=== PATIENT | female | born 1955 | race African-American/Black ===

== ENCOUNTER → 2019-09-24 | Outpatient (CLI) | payer MEDICARE ==
--- NOTE | 2019-09-24 16:35 | CONS ---
CONSULTATION DATE OF SERVICE: 09/24/2019 This patient is a 63-year-old lady who has been re-evaluated in [facility] for obstructive sleep apnea-hypopnea syndrome. HISTORY OF PRESENT ILLNESS/SLEEP-WAKE EVALUATION: Patient was diagnosed with obstructive sleep apnea more than 8 years ago, was on treatment with CPAP. More than one year ago she stopped using her CPAP equipment. She also has had significant changes in her weight since her previous evaluation; she lost more than 70 pounds after bariatric surgery. Her sleep schedule is different. She is retired and does not keep a regular sleep schedule. Sometimes she has problems with falling asleep. She usually sleeps on the side position by herself. She may wake up from sleep with nocturia. During the day, sometimes she feels sleepiness, especially while watching TV or lying down in the afternoon. [place] Sleepiness Scale is 6. She takes one caffeinated beverage during the day. No history of hypnagogic hallucinations, sleep paralysis or cataplexy. PAST MEDICAL HISTORY: Positive for hypertension, hyperlipidemia, diabetes mellitus, gout. PAST SURGICAL HISTORY: Bariatric surgery in 2017. After surgery the patient lost about 70 pounds. MEDICATIONS: Metoprolol, metformin, allopurinol, gabapentin, atorvastatin, lansoprazole, lisinopril, Victoza, B12 tablets, calcium supplement. SOCIAL HISTORY: Negative for smoking or using alcohol. FAMILY HISTORY: Heart problems. REVIEW OF SYSTEMS: Some awakenings from sleep, episodes of sleepiness during the day. PHYSICAL EXAMINATION: GENERAL: A pleasant -Tajik lady without distress. VITAL SIGNS: BP 106/68, HR 88, RR 16, height 5 feet 2 inches, weight 234, BMI 42.7, temperature 98.8, oxygen saturation at room air 98%. HEENT: PERRLA, EOMI. Evaluation of oropharynx showed tongue protrudes midline. Low position of soft palate. NECK: Supple. No JVD. Thyroid is not palpable. Neck measures 16 inches in circumference. LUNGS: Clear to percussion and to auscultation. Good air exchange. No wheezing or rhonchi. HEART: S1, S2 regular. No murmurs, gallops or rubs. ABDOMEN: Obese. EXTREMITIES: No clubbing or cyanosis. BPM DEVELOPER: Awake, alert, and oriented X3. Cranial nerves 2 to 7 intact. There is no fasciculation or atrophy. noted. No focal deficits observed. IMPRESSION: 1. History of obstructive sleep apnea documented by polysomnography around 2011. The patient was on treatment with CPAP. She stopped treatment more than one year ago. The patient lost a significantly amount of weight after bariatric surgery; down about 70 pounds. Obstructive sleep apnea-hypopnea syndrome. 2. Obesity; body mass index 42.7. 3. Hypertension. 4. Diabetes mellitus. 5. History of gout. 6. Hyperlipidemia. 7. Status post bariatric surgery in 2017. PLAN: 1. Polysomnography for evaluation of patient's breathing during sleep. 2. CPAP/BiPAP titration if sleep study confirms obstructive sleep apnea-hypopnea syndrome. 3. Preferable position during sleep on the side. 4. No driving if patient feels any sleepiness. 5. I will see patient for follow up visit to explain results of testing and following plan. Thank you very much for allowing me to participate in the management of your patient. Sincerely, Niranjan Denise MD, PhD, FAASM Diplomat of [place] [employer] [place] [employer] Director [facility] [place] MMODL / ANGN: [id number] /
== END | disposition home or self-care (01) ==
LOC: SLEEP 11:44
PROVIDERS: ATTEND Internal Medicine
DX: G47.33 Obstructive sleep apnea (adult) (pediatric) (principal); Z99.89 Dependence on other enabling machines and devices; E66.9 Obesity, unspecified; I10 Essential (primary) hypertension; E11.9 Type 2 diabetes mellitus without complications; E78.5 Hyperlipidemia, unspecified; Z98.84 Bariatric surgery status; Z68.41 Body mass index [BMI] 40.0-44.9, adult; Z87.39 Personal history of other diseases of the musculoskeletal system and connective tissue
CPT/HCPCS: 99211

== ENCOUNTER → 2019-10-01 | Outpatient (CLI) | payer MEDICARE ==
[2019-10-01 15:30] LABS: Potassium 5.6 mmol/L (3.5-5.1)
[2019-10-01 15:41] LABS: HCT 34.8 % (34.0-46.0); HGB 11.2 gm/dL (11.4-16.0); Hypochromasia Slight; MCH 31.8 pg (25.0-35.0); MCHC 32.1 g/dL (31.0-37.0); MCV 99.1 fL (80.0-100.0); Mean Platelet Volume 7.9; Platelet Count 244 k/uL (150-450); RBC 3.51 m/uL (3.80-5.40); WBC 6.4 k/uL (3.8-10.6)
== END | disposition home or self-care (01) ==
LOC: LABWHC1 14:49
PROVIDERS: ATTEND Internal Medicine Interventional Cardiology
DX: Z01.818 Encounter for other preprocedural examination (principal); R94.39 Abnormal result of other cardiovascular function study
CPT/HCPCS: 36415; 80051; 82565; 84520; 85027

== ENCOUNTER 2019-10-08 06:23 | Day surgery (SDC) | payer MEDICARE ==
[2019-10-06 10:47] VITALS: BMI 42.7
[~2019-10-08 06:23] MED LIST: ALPRAZolam 0.25 MG TAB PO PRN; ALPRAZolam 0.5 MG TAB PO PRN; ASPIRIN 325 MG TAB PO STA; ATORVASTATIN 80 MG TAB PO STA; NITROGLYCERIN SL TABS 0.4 MG TAB SUBLINGUAL PRN; SODIUM CHLORIDE 0.9% 1,000 ML in EMPTY BAG 1 BAG IV ONE
[2019-10-08 07:09] LABS: Glucose,Whole Blood 139 mg/dL (75-99)
[2019-10-08] MEDS ORDERED: fentaNYL (PF) 50 MCG/ML 2 ML AMP ONE (07:37)
[2019-10-08] MEDS ORDERED: MIDAZOLAM 2 MG/2 ML VIAL IV ONE (07:37)
[2019-10-08] MEDS ORDERED: LIDOCAINE 1% INJ 10MG/ML (20 ML MDV) SQ ONE ×2 (07:37→08:05)
[2019-10-08] MEDS ORDERED: fentaNYL (PF) 50 MCG/ML 2 ML AMP IV ONE (07:37)
[2019-10-08] MEDS ORDERED: BIVALIRUDIN 250 MG in SODIUM CHLORIDE 0.9% 34 ML IV ONE (08:10)
[2019-10-08] MEDS ORDERED: BIVALIRUDIN BOLUS 250 MG/50 ML IV ONE (08:10)
[2019-10-08] MEDS ORDERED: CLOPIDOGREL 75 MG TAB ONE (08:16)
[2019-10-08] MEDS ORDERED: IOPAMIDOL-370 100ML BTL INJ ONE ×2 (08:20→08:33)
[2019-10-08] MEDS ORDERED: CLOPIDOGREL 75 MG TAB PO ONE (08:21)
[2019-10-08] MEDS ORDERED: RX INFO: IV CONTRAST WAS GIVEN 1 EACH MISC MISCELLANE PRN (08:42)
[2019-10-08] MEDS ORDERED: NITROGLYCERIN SL TABS 0.4 MG TAB SUBLINGUAL PRN (08:42)
[2019-10-08] MEDS ORDERED: ATROPINE SULFATE 0.1 MG/ML 10ML SYRINGE IV PRN (08:42)
[2019-10-08] MEDS ORDERED: ZOLPIDEM 5 MG TAB PO PRN (08:42)
[2019-10-08] MEDS ORDERED: MAG HYDROX/AL HYDROX/SIMETH 30 ML CUP PO PRN (08:42)
[2019-10-08] MEDS ORDERED: SODIUM CHLORIDE 0.9% 1,000 ML IV SCH (08:45)
--- NOTE | 2019-10-08 09:17 | PTCA ---
PERCUTANEOUSTRANS CORORONARY ANGIOGRAPHY Mrs Ferreira is a 63-year-old female with history of hypertension, hyperlipidemia, diabetes mellitus, who had been complaining of chest discomfort and abnormal myocardial perfusion imaging, underwent cardiac catheterization, was found to have critical stenosis involving the proximal LAD. In view of that, recommendation regarding angioplasty and stenting, the procedures, risks, and complication were discussed with the patient who is in full understanding and agreement. PROCEDURE: Using a 6-Malagasy FR4 guiding catheter and after cannulating the left main, a 0.014 balanced medium weight J-wire was advanced across the lesion, positioned distally, then a 2.5 x 12 mm Trek balloon was advanced and one inflation at 8 atmospheres was done. Following that, the balloon was removed and a 2.5 x 15 mm Xience Maryana stent was deployed, post-dilated at 16 atmospheres. After the last inflation, after appropriate wait, the balloon and the guidewire were withdrawn back in the guiding catheter. Images were obtained and repeated. Those images reveal stable successful stenting. At that point, the guiding catheter, the balloon and the guidewire were removed. The sheath was removed, hemostasis was obtained with deployment of an Angio-Seal. There was no immediate complication. Patient was returned to her room in stable condition. Of note, the patient received oral loading dose of clopidogrel as well as Angiomax per protocol. She had no significant chest pain or EKG changes with the inflation. RESULTS: Successful stenting of the proximal LAD with reduction of stenosis from 95% to 0%. RECOMMENDATION: Patient will be continued on aspirin, Plavix, statin and an CHRISTIAN inhibitor. The importance of dual antiplatelet treatment was discussed with the patient and her family and they are in full understanding and agreement. Duration of sedation is 57 minutes. MMODL / IJN: [id number] /
--- NOTE | 2019-10-08 09:17 | CC ---
CARDIAC CATHETERIZATION REPORT Mrs Ferreira is a 63-year-old female with known history of hypertension, hyperlipidemia, diabetes mellitus, who has been complaining of episode of chest discomfort, underwent a myocardial perfusion imaging that revealed an anteroseptal reversible defect. In view of that, recommendation made regarding cardiac catheterization. The procedures, risks, and complication were discussed with the patient who is in full understanding and agreement. PROCEDURE: Patient was brought to lab tech in a fasting semi-sedated state after receiving fentanyl and Benadryl and achieving moderate conscious sedated state. Attempts to cannulate the right coronary artery were unsuccessful because of severe spasm and inability to advance the wire. At that time, the a TR band was placed on the right radial artery. Using Xylocaine anesthesia and Seldinger technique, a 6-Georgian sheath was introduced in the right femoral artery. Selective right and left coronary angiography performed using 5-Georgian 3.5 bend right and left Yuli catheter, multiple views of the coronary artery including hemiaxial views were obtained. Following that, the right Yuli catheter was used to cross the aortic valve and pressures were calculated. Following that, catheter and sheath were removed, images were reviewed. FINDINGS: FLUOROSCOPY: There was mild calcification involving the LAD. LEFT MAIN: This is a large-sized vessel, bifurcating into left circumflex, left anterior descending artery. Left main coronary artery has a 10% to 20% plaque distally. LEFT ANTERIOR DESCENDING ARTERY: This is a large-sized vessel, reaching toward the apex with a wraparound apex segment. The left anterior descending artery proximally has a 95% stenosis, the rest of the vessel has no high-grade stenosis. LEFT CIRCUMFLEX: This is a codominant vessel, large in caliber, giving rise to a large proximal obtuse marginal branch, and the mid segment was smaller obtuse marginal branch and distally to a left PDA. The left circumflex has mild intimal disease of 20% without any evidence of high-grade stenosis. RIGHT CORONARY ARTERY: This is a codominant vessel, moderate in caliber, bifurcating distally into PDA and posterolateral segment and branches. The right coronary artery in mid segment has diffuse intimal disease of 20%. The rest of the vessel has no high- grade stenosis. LEFT VENTRICULOGRAM: Left ventriculogram not performed. HEMODYNAMICS: There was no gradient across the aortic valve. The ventricular end- diastolic pressure was 14-16 mmHg. CONCLUSION: 1. Critical stenosis involving the proximal LAD. 2. Mild disease in the left circumflex and the right coronary artery. RECOMMENDATION: In view of finding anatomy, I recommend proceeding with angioplasty and stenting of the left anterior descending artery. The procedures, risks, and complication were discussed with the patient who is in full understanding and agreement. MMMELISSA / ALEXANDRA: [id number] /
--- NOTE | 2019-10-08 09:23 | LTR ---
DATE OF SERVICE: 10/08/2019 RE: Lorin Ferreira Dear Dr. Pate; I had the pleasure to perform cardiac catheterization, coronary angioplasty and stenting on Mrs. Ferreira at [facility] on October 08, 2019 and a full copy of the procedure note will be forwarded to you. In brief, she was found to have critical stenosis involving the proximal LAD, underwent successful stenting of that vessel. I am hopeful that this procedure was stabilize her status and thank you again for allowing me to participate in this patient's personal care. Please feel free to call for any questions. Sincerely yours, MD EMILY Ventura / ANGN: [id number] /
[2019-10-08] MEDS: ASPIRIN 81 MG PO SCH (10:33)
[2019-10-08] MEDS: GABAPENTIN 400 MG CAP PO SCH ×3 (10:33→21:33)
[2019-10-08] MEDS: METOPROLOL TARTRATE 25 MG TAB PO SCH ×2 (10:33→21:33)
[2019-10-08] MEDS: lisinopriL 10 MG TAB PO SCH (10:33)
[2019-10-08] MEDS: CYANOCOBALAMIN 500 MCG TAB PO SCH (10:33)
[2019-10-08] MEDS: allopurinoL 300 MG TAB PO SCH (10:33)
[2019-10-08] MEDS: MULTIVITAMINS, THERA 1 EACH TAB PO SCH (10:34)
[2019-10-08] MEDS ORDERED: ATORVASTATIN 80 MG TAB PO SCH (21:00)
[2019-10-09] MEDS ORDERED: ACETAMINOPHEN TAB 325 MG TAB PO STA (02:57)
[2019-10-09 06:08] LABS: Potassium 5.6 mmol/L (3.5-5.1)
[2019-10-09 06:09] LABS: Calcium 9.1 mg/dL (8.4-10.2)
[2019-10-09] MEDS ORDERED: PANTOPRAZOLE 40 MG TABLET PO SCH (07:30)
--- NOTE | 2019-10-09 07:30 | PN ---
PROGRESS NOTE Mrs. Ferreira is a 63-year-old female with known history of hypertension, hyperlipidemia, and diabetes mellitus, who had episode of chest discomfort and abnormal myocardial perfusion imaging, underwent cardiac catheterization, was found to have critical stenosis involving the proximal LAD, underwent stenting of that vessel. She is doing well this morning. Her breathing is stable. She denies any chest pain. No dizziness. No palpitation. She is ambulating without difficulty. She continues to be in sinus mechanism. She continues to be on aspirin once a day, Plavix 75 mg daily, Lipitor 80 mg daily, gabapentin, Victoza, lisinopril 10 mg daily, metoprolol tartrate 25 mg twice a day. PHYSICAL EXAMINATION: Blood pressure 114/60 with the heart rate in the 60s. LUNGS: Clear. HEART: Regular rate and rhythm. S1, S2. No S3 with systolic ejection murmur heard at the base. No diastolic murmur. No rub. ABDOMEN: Soft, nontender, obese. EXTREMITIES: No edema. Right groin, no hematoma. Right radial pulse intact. EKG revealed no acute changes. LAB DATA: Lab data revealed BUN and creatinine 28 and 0.86, potassium 5.6. IMPRESSION: 1. Status post stenting of the proximal left anterior descending artery. 2. Hypertension. 3. Hyperlipidemia. 4. Diabetes mellitus. RECOMMENDATION: Patient will be discharged home today and followed as an outpatient. MMODL / IJN: [id number] /
[2019-10-09 08:10] VITALS: BP 128/72; PULSE 87; RESP 16; TEMP 97.9
[2019-10-09] MEDS: GABAPENTIN 400 MG CAP PO SCH (08:12)
[2019-10-09] MEDS: ASPIRIN 81 MG PO SCH (08:12)
[2019-10-09] MEDS: METOPROLOL TARTRATE 25 MG TAB PO SCH (08:12)
[2019-10-09] MEDS: allopurinoL 300 MG TAB PO SCH (08:12)
[2019-10-09] MEDS: MULTIVITAMINS, THERA 1 EACH TAB PO SCH (08:12)
[2019-10-09] MEDS: CYANOCOBALAMIN 500 MCG TAB PO SCH (08:13)
[2019-10-09] MEDS: lisinopriL 10 MG TAB PO SCH (08:13)
[2019-10-09] MEDS ORDERED: CLOPIDOGREL 75 MG TAB PO SCH (08:43)
[2019-10-10] MEDS ORDERED: ERGOCALCIFEROL 50,000 UNIT CAP PO SCH (09:00)
== END 2019-10-09 09:55 | disposition home or self-care (01) ==
LOC: CATHCVL 06:23 → 3NCARDOBS 09:00 → CATHCVL 10-09 09:55
PROVIDERS: ATTEND Internal Medicine Interventional Cardiology
DX: I25.10 Atherosclerotic heart disease of native coronary artery without angina pectoris (principal); I10 Essential (primary) hypertension; E11.9 Type 2 diabetes mellitus without complications; E78.2 Mixed hyperlipidemia; E66.9 Obesity, unspecified; Z79.84 Long term (current) use of oral hypoglycemic drugs; Z79.899 Other long term (current) drug therapy; Z90.710 Acquired absence of both cervix and uterus; Z98.84 Bariatric surgery status; Z90.49 Acquired absence of other specified parts of digestive tract; Z90.89 Acquired absence of other organs; Z68.41 Body mass index [BMI] 40.0-44.9, adult; Z82.3 Family history of stroke; Z82.49 Family history of ischemic heart disease and other diseases of the circulatory system
CPT/HCPCS: 93458; 85347; 80048; 84132; C9600; C1769 ×4; C1760; C1887; C1725; C1894 ×2; C1874; J2250; J2001; J3010; J0583; Q9967

== ENCOUNTER → 2019-11-06 | Outpatient (CLI) | payer MEDICARE ==
[2019-11-07 09:39] LABS: Angiotensin-1 Converting Enz. 5 U/L (8-52)
[2019-11-07 11:05] LABS: ANA Pattern Homogeneous
== END | disposition home or self-care (01) ==
LOC: LABWHC1 09:17
PROVIDERS: ATTEND Ophthalmology
DX: H20.9 Unspecified iridocyclitis (principal)
CPT/HCPCS: 36415; 82164; 85549; 86038; 86039; 86140

== ENCOUNTER → 2019-11-20 | Outpatient (CLI) | payer MEDICARE ==
[2019-11-20 23:32] LABS: Hepatitis A Antibody IgM Non-Reactive (Non-Reactive); Hepatitis B Core IgM Non-Reactive (Non-Reactive); Hepatitis B Surface Antigen Non-Reactive (Non-Reactive); Hepatitis C IgG Antibody Non-Reactive (Non-Reactive)
[2019-11-21 01:24] LABS: Rheumatoid Factor, Qnt 8 IU/mL (0-15)
[2019-11-22 16:13] LABS: HLA B27 NEGATIVE
== END | disposition home or self-care (01) ==
LOC: LABWHC1 15:59
PROVIDERS: ATTEND Ophthalmology
DX: H20.9 Unspecified iridocyclitis (principal)
CPT/HCPCS: 36415; 80074; 85652; 86431; 86618; 86780; 86812

== ENCOUNTER → 2020-03-10 | Outpatient (CLI) | payer MEDICARE ==
--- NOTE | 2020-03-15 11:48 | MM ---
Reason for exam: screening (asymptomatic). Last mammogram was performed 12 years and 7 months ago. History: Patient is postmenopausal. Family history of breast cancer in aunt. Benign ultrasound-guided core biopsy of the right breast, May 11, 2004. Benign ultrasound-guided core biopsy of the right breast, May 11, 2004. Benign excisional biopsy of the right breast, May 04, 1997. Cyst aspiration of the left breast. Cyst aspiration of the right breast. 2 core biopsies of the right breast. Excisional biopsy of the left breast. Excisional biopsy of the right breast. Took hormonal contraceptives for 5 years. Physical Findings: A clinical breast exam by your physician is recommended on an annual basis and results should be correlated with mammographic findings. MG Screening Mammo w CAD Bilateral CC and MLO view(s) were taken. No prior studies available for comparison. The breast tissue is heterogeneously dense. This may lower the sensitivity of mammography. Finding: There are dystrophic, diffuse/scattered calcifications in both breasts. Previous mammotome biopsy in the right breast. There are grouped calcifications left lower inner quadrant middle position. ASSESSMENT: Incomplete: need additional imaging evaluation, BI-RAD 0 RECOMMENDATION: Special view mammogram of the left breast. [facility] will attempt to contact patient to return for supplemental views.
== END | disposition home or self-care (01) ==
LOC: RADMAMWWP 13:42
PROVIDERS: ATTEND Internal Medicine
DX: Z12.31 Encounter for screening mammogram for malignant neoplasm of breast (principal)
CPT/HCPCS: 77067

== ENCOUNTER → 2020-03-18 | Outpatient (CLI) | payer MEDICARE ==
--- NOTE | 2020-03-18 11:53 | MM ---
Reason for exam: additional evaluation requested from abnormal screening. Last mammogram was performed less than 1 month ago. History: Patient is postmenopausal. Family history of breast cancer in aunt. Benign ultrasound-guided core biopsy of the right breast, May 11, 2004. Benign ultrasound-guided core biopsy of the right breast, May 11, 2004. Benign excisional biopsy of the right breast, May 04, 1997. Cyst aspiration of the left breast. Cyst aspiration of the right breast. 2 core biopsies of the right breast. Excisional biopsy of the left breast. Excisional biopsy of the right breast. Took hormonal contraceptives for 5 years. Physical Findings: Nurse did not find any significant physical abnormalities on exam. MG Work Up Mamm w CAD LT Spot compression CC, spot compression LM, and LM view(s) were taken of the left breast. Prior study comparison: March 10, 2020, bilateral MG screening mammo w CAD. The breast tissue is heterogeneously dense. This may lower the sensitivity of mammography. Finding: There are intermediate concern, suspicious coarse heterogeneous calcifications in the upper inner quadrant, posterior position of the left breast 12cm from the nipple. These results were verbally communicated with the patient and result sheet given to the patient on 03/18/20. ASSESSMENT: Suspicious, BI-RAD 4 RECOMMENDATION: Stereotactic core biopsy of the left breast. (left breast calcification) Called Dr. Pate's office with mammographic findings and has scheduled an appointment for the patient for 04/22/20 at 9:[address] Woody. Biopsy scheduled for 04/29/20 at 8:00. PRELIMINARY REPORT CALLED AND FAXED TO DR. WOODY ON 03/18/20.
== END | disposition home or self-care (01) ==
LOC: RADMAMWWP 09:03
PROVIDERS: ATTEND Internal Medicine
DX: R92.8 Other abnormal and inconclusive findings on diagnostic imaging of breast (principal)
CPT/HCPCS: 77065

== ENCOUNTER → 2020-04-12 | Outpatient (CLI) | payer MEDICARE ==
--- NOTE | 2020-04-12 09:43 | P.GSHP ---
History of Present Illness H&P Date: 04/12/20 Chief Complaint: abnormal left breast mammogram This is 64-year-old -Martiniquais female seen in consultation for Dr. Pate regarding a mammographic abnormality in the left breast. A routine mammogram was performed on 03-10-20, and Additional views of the left breast was recommended for calcifications, these were performed on 172. Calcifications which were indeterminate were seen in the left breast in the upper inner quadrant area. It was recommended she have a stereotactic core biopsy performed.The patient has not felt any lumps masses or nodules of concern. She does not have any nipple discharge of concern. She's has no skin changes of concern. She is not complaining of any pain in the breast. She has had bilateral breast biopsies in the remote past for fibrocystic breast disease. She has also had a cyst aspirated in both breasts in the past.The patient does not relate any history of recent trauma or infection in the breast. Caffeine: Seldom Nicotine: Negative GI bloating: Negative Family history: Maternal aunt: Cervical cancer Maternal aunt: Breast cancer Hormonal history: Menarche: 12 , breast-fed no, age of first. 16 Menopause: Hysterectomy a 51 ovary removed and for fibroid tumors control pills: 5 years Hormones: Negative Past surgical history: Hysterectomy Bilateral breast biopsies Cholecystectomy Tommy-en-Y, has lost 70 pounds to 2 years ago Appendectomy cardiac stint 10-08-19 Medical history: Hypertension Diabetes patient on aspirin and plavic after a cardiac stint Social History: smoke: none alcohol: noen drugs: none - Constitutional Constitutional: Denies chills, Denies fever - EENT Eyes: denies blurred vision, denies pain Ears: deny: decreased hearing, tinnitus Ears, nose, mouth and throat: Denies headache, Denies sore throat - Breasts Breasts: bilateral: as per HPI - Cardiovascular Comment: cardiac stint - Respiratory Comment: sleep apnea Respiratory: Denies cough, Denies 7 - Gastrointestinal Gastrointestinal: Denies abdominal pain, Denies diarrhea, Denies nausea, Denies vomiting - Genitourinary (Female) Genitourinary: Denies dysuria, Denies hematuria - Menstruation Menstruation: Reports post hysterectomy - Musculoskeletal Comment: arthritis Musculoskeletal: Denies myalgias - Integumentary Integumentary: Denies pruritus, Denies rash - Neurological Neurological: Denies numbness, Denies weakness - Psychiatric Psychiatric: Denies anxiety, Denies depression - Endocrine Endocrine: Denies fatigue, Denies weight change - Hematologic/Lymphatic Comment: aspirin and plavic Hematologic/Lymphatic: Reports as per HPI - Allergic/Immunologic Allergic/Immunologic: Reports as per HPI Past Medical History Past Medical History: Diabetes Mellitus, Hyperlipidemia, Hypertension, Sleep Apnea/CPAP/BIPAP Additional Past Medical History / Comment(s): heart murmur History of Any Multi-Drug Resistant Organisms: None Reported Past Surgical History: Appendectomy, Bariatric Surgery, Cholecystectomy, Hysterectomy Additional Past Surgical History / Comment(s): tommy-en-y bariatric surgery Past Anesthesia/Blood Transfusion Reactions: No Reported Reaction Past Psychological History: No Psychological Hx Reported Smoking Status: Never smoker Past Alcohol Use History: None Reported Past Drug Use History: None Reported - Past Family History Mother Family Medical History: No Reported History Medications and Allergies Home Medications Medication Instructions Recorded Confirmed Type Allopurinol [Zyloprim] 300 mg PO DAILY 10/06/19 04/12/20 History Aspirin [Adult Low Dose Aspirin EC] 81 mg PO DAILY 10/06/19 04/12/20 History Calcium Citrate 2,000 mg PO DAILY 10/06/19 04/12/20 History Cyanocobalamin [Vitamin B-12] 500 mcg PO DAILY 10/06/19 04/12/20 History Ergocalciferol [Vitamin D2 50,000 unit PO FR 10/06/19 04/12/20 History (DRISDOL)] Gabapentin [Neurontin] 400 mg PO TID 10/06/19 04/12/20 History Lansoprazole [Prevacid] 30 mg PO DAILY 10/06/19 04/12/20 History Liraglutide [Victoza 2-Josh] 0.6 mg SQ DAILY 10/06/19 04/12/20 History Lisinopril [Prinivil] 10 mg PO DAILY 10/06/19 04/12/20 History Metoprolol Tartrate [Lopressor] 25 mg PO BID 10/06/19 04/12/20 History Multivitamins, Thera [Multivitamin 1 tab PO BID 10/06/19 04/12/20 History (formulary)] metFORMIN HCL [Glucophage] 500 mg PO BID 10/06/19 04/12/20 History Atorvastatin [Lipitor] 80 mg PO HS #90 tab 10/09/19 04/12/20 Rx Clopidogrel [Plavix] 75 mg PO DAILY #90 tab 10/09/19 04/12/20 Rx Nitroglycerin Sl Tabs [Nitrostat] 0.4 mg SUBLINGUAL Q5M PRN #25 tab 10/09/19 04/12/20 Rx Ezetimibe [Zetia] 10 mg PO DAILY 04/12/20 04/12/20 History Allergies Allergy/AdvReac Type Severity Reaction Status Date / Time No Known Allergies Allergy Verified 04/12/20 09:06 Surgical - Exam BMI 42.1 - General obese - Eyes normal ocular movement - ENT normal pinna, normal mucosa - Neck no masses, trachea midline - Respiratory normal expansion, normal respiratory effort, clear to auscultation - Cardiovascular Rhythm: regular Heart Sounds: normal: S1, S2 - Abdomen Abdomen: soft, non tender, no guarding, no rigid, no rebound - Integumentary normal turgor - Neurologic no disoriented, no combative - Musculoskeletal normal gait - Psychiatric oriented to time, oriented to person, oriented to place, speech is normal, memory intact breast exam: BRA 44DD inspection: Bilateral grade 3 ptosis Palpation: Right breast: Well-healed scar from prior biopsy, no dominant masses or nodules of concern on multi-positional exam Right axilla: No adenopathy of concern Left breast: Multi-positional exam fibrocystic changes no dominant masses or nodules of concern, well-healed scar from prior open biopsy Left axilla: No adenopathy of concern Results Mammogram results reviewed Assessment and Plan Assessment: Impression: Hypertension Diabetes patient on aspirin and plavic after a cardiac stint Abnormal left breast mammogram Family history of cancer Plan: 1. Stereotactic core biopsy left breast/patient will stop Plavix as per cardiology maintain on low-dose aspirin 2. Medical management of medical conditions Cc: Dr. Pate Risks and benefits of the procedure discussed with the patient. Risks include but are not limited to bleeding, infection, reaction to the anesthetic. Additionally the patient understands that because she was still be on aspirin she has increased risk of the hematoma. She understands and wishes to proceed. Alternatives such as watchful waiting or resection in the operating room I discussed but not recommended. Encounter: time 45 minutes, time spent in reviewing medical records, physical examination, and counseling.
[2020-04-12 10:30] VITALS: BP 135/86; PULSE 68; RESP 18; TEMP 97.6
== END | disposition home or self-care (01) ==
LOC: WWCWWP 08:57
PROVIDERS: ATTEND Surgery
DX: Z53.9 Procedure and treatment not carried out, unspecified reason (principal)

== ENCOUNTER → 2020-04-14 | Outpatient (CLI) | payer MEDICARE ==
--- NOTE | 2020-04-14 23:33 | SFUN ---
SLEEP CENTER FOLLOW UP NOTE DATE OF SERVICE: 04/14/2020 This 64-year-old lady has been followed in Sleep Center for treatment of obstructive sleep apnea-hypopnea syndrome. Recently the patient had a diagnostic polysomnogram which showed that she has obstructive sleep apnea-hypopnea syndrome. Then she had CPAP titration and she was started subsequently on treatment with CPAP. Today is her first visit after she started to use CPAP equipment. The patient feels better with the CPAP. She feels better during the day and she feels more refreshed in the morning after she wakes up. [place] Sleepiness Scale today is 4, which is normal. I checked her CPAP unit. CPAP pressure is 10 cm of water, usage 29/30 nights for more than 4 hours with average usage 6.4 hours per night. Leak is 17 L/minute. Apnea- hypopnea index 1.2. MEDICATIONS: Metoprolol, metformin, allopurinol, gabapentin, atorvastatin, lisinopril, Victoza. PHYSICAL EXAMINATION: GENERAL: A pleasant patient in no distress. VITAL SIGNS: BP 116/62, HR 82, RR 15, weight 235, temperature 97.2, oxygen saturation at room air 95%. HEENT: PERRLA, EOMI. Evaluation of oropharynx showed tongue protrudes midline. Low position of soft palate. NECK: Supple. No JVD. Thyroid is not palpable. LUNGS: Clear to percussion and to auscultation. Good air exchange. No wheezing or rhonchi. HEART: S1, S2 regular. No murmurs, gallops or rubs. ABDOMEN: Obese. EXTREMITIES: No clubbing or cyanosis. CHAIN TESTING MACHINE OPERATOR: Awake, alert, and oriented X3. Cranial nerves 2 to 7 intact. There is no fasciculation or atrophy. noted. No focal deficits observed. IMPRESSION: 1. Obstructive sleep apnea-hypopnea syndrome. Patient demonstrated practically 100% compliance with treatment, benefitting from treatment. 2. Obesity. 3. Hypertension. 4. Diabetes mellitus. 5. History of gout. 6. Hyperlipidemia. 7. Status post bariatric surgery. PLAN: 1. Patient will continue to use PAP equipment every night for the whole night. 2. Sleep hygiene with regular time in bed for at least 7-1/2 to 8 hours. 3. Precautions related to driving. No driving if feeling sleepiness. 4. I will maintain all necessary prescription for PAP supplies including mask, tube, filters. 5. Watching weight. 6. No driving if feeling sleepiness. 7. Follow-up visit in 6 months or earlier if patient has any problems. Thank you very much for allowing me to participate in the management of your patient. Sincerely, Nrianjan Denise MD, PhD, FAASM Diplomat of [place] [employer] [place] [employer] [facility] [place] MMODL / ANGN: [id number] /
== END | disposition home or self-care (01) ==
LOC: SLEEP 14:43
PROVIDERS: ATTEND Internal Medicine
DX: G47.33 Obstructive sleep apnea (adult) (pediatric) (principal); I10 Essential (primary) hypertension; E11.9 Type 2 diabetes mellitus without complications; Z87.39 Personal history of other diseases of the musculoskeletal system and connective tissue; E78.5 Hyperlipidemia, unspecified; Z98.84 Bariatric surgery status; Z99.89 Dependence on other enabling machines and devices; Z79.84 Long term (current) use of oral hypoglycemic drugs; Z79.899 Other long term (current) drug therapy

== ENCOUNTER → 2020-04-29 | Day surgery (SDC) | payer MEDICARE ==
[2020-04-29 07:27] VITALS: RESP 16; TEMP 98.6
--- NOTE | 2020-04-29 09:03 | P.PCN ---
Date of Procedure: 04/29/20 Preoperative Diagnosis: Suspicious calcifications left breast upper inner quadrant Postoperative Diagnosis: Same Procedure(s) Performed: Stereotactic core biopsy Anesthesia: local Surgeon: Leah Woody Pathology: other (Breast tissue) Condition: stable Disposition: same day Indications for Procedure: Calcifications of concern left breast upper inner quadrant Operative Findings: Biopsy of specimen revealed calcifications of concern Description of Procedure: Lorin is a 64-year-old -[place]ian female who was noted to have coarse heterogeneous calcifications in the upper outer quadrant of the left breast. Stereotactic core biopsy was recommended. The risk and benefits of the procedure were discussed with the patient. She understood these and wished to proceed. The patient was taken to the stereotactic core biopsy room. She was positioned on the lo-rad table. A powerhouse oiler film was obtained. The area of concern was identified. CC from below approach was utilized. The lesion was targeted. The breast was prepped using Betadine. 20 mL of 1% lidocaine were used to anesthetize the area of concern. A 9-gauge vacuum-assisted core rotating biopsy needle was driven to the correct coordinates. The needle was fired. A postfire film was obtained. The needle was noted to be in the correct location. 3 specimens were obtained at the 9 o'clock position. Radiograph did not reveal the calcifications of concern. Therefore additional specimens from the 12 to 6 o'clock position going to 9:00 were obtained. This was a total of 9 specimens. Radiograph of the specimen did reveal the area of concern. The area was lavaged. After we were satisfied that hemostasis was attained a secure marked top a clip was left in place. A post clip placement film was obtained to show the clip was in the correct location. The patient tolerated the procedure in stable condition. The patient will follow with Dr. Hill next week. Should be noted that the area of concern was felt to be adequately sampled.
[2020-04-29 09:07] VITALS: BP 158/82; PULSE 63
--- NOTE | 2020-04-29 17:43 | MM ---
EXAMINATION TYPE: MG stereo VAD BX LT DATE OF EXAM: 04/29/2020 COMPARISON: 03/18/2020 and 03/10/2020 CLINICAL HISTORY: 64-year-old female referred for stereotactic biopsy of left breast microcalcifications TECHNIQUE: Stereotactic guided core biopsy of the 9:00 os tear left breast microcalcifications. FINDINGS: The procedure of stereotactic guided core biopsy was explained to the patient. Benefits, alternatives, and risks were discussed. An informed consent was then obtained. The Shortness pathway was a medial approach. However, an inferior approach was utilized by the technologist due to ease of positioning and visibility of calcifications. I performed the localization, then surgeon, Dr. Sergio Kimball performed the remainder of the procedure. A vacuum assisted biopsy gun was used to obtain multiple core samples. The patient tolerated the procedure well without any immediate complication. The patient was kept in the radiology department for short stay after the procedure and then discharged home in stable condition. The calcifications were partially sampled and are identified in the specimen mammograms. Post biopsy mammogram shows significant superior migration of approximately 3.7 cm. There is also anterior migration of 1.5 cm. Residual microcalcifications remain at the biopsy site. IMPRESSION: SUCCESSFUL, UNCOMPLICATED STEREOTACTIC GUIDED CORE BIOPSY OF 9:00 POSTERIOR LEFT BREAST MICROCALCIFICATIONS. FULL PATHOLOGY RESULTS TO FOLLOW. Note significant superior and anterior clip migration. If pathology reports high risk or malignant results, the residual microcalcifications should be targeted for excision rather than the clip. Pathology Results: Benign LEFT BREAST, CORE NEEDLE BIOPSY: Fibroadenomatoid stromal hyperplasia with focal microcalcification, fibrocystic change with apocrine metaplasia, and mild periductal chronic inflammation. Negative for in situ or invasive carcinoma. Recommendation Follow up mammogram of the left breast in 6 months. MTDD
== END ==
LOC: RADMAMWWP 07:04
PROVIDERS: ATTEND Surgery
DX: N60.82 Other benign mammary dysplasias of left breast (principal); N60.12 Diffuse cystic mastopathy of left breast; N61.0 Mastitis without abscess
CPT/HCPCS: 88305; 19081; A4648; J2001

== ENCOUNTER → 2020-05-06 | Outpatient (CLI) | payer MEDICARE ==
[2020-05-06 11:42] VITALS: BP 145/80; PULSE 80; RESP 18; TEMP 98.5
--- NOTE | 2020-05-06 11:44 | P.PN ---
Subjective Progress Note Date: 05/06/20 Principal diagnosis: stero biopsy results left bresat This is 64-year-old -Citizen Of [place] female seen in consultation for Dr. Pate regarding a mammographic abnormality in the left breast. A routine mammogram was performed on 03-10-20, and Additional views of the left breast was recommended for calcifications, these were performed on 1720. Calcifications which were indeterminate were seen in the left breast in the upper inner quadrant area. It was recommended she have a stereotactic core biopsy performed.The patient has not felt any lumps masses or nodules of concern. She does not have any nipple discharge of concern. She's has no skin changes of concern. She is not complaining of any pain in the breast. She has had bilateral breast biopsies in the remote past for fibrocystic breast disease. She has also had a cyst aspirated in both breasts in the past.The patient does not relate any history of recent trauma or infection in the breast. Fibers status post left breast are detected core biopsy on . Pathology revealed fibroadenomatoid stromal hyperplasia with focal microcalcification, fibrocystic change with apocrine metaplasia, and mild periductal chronic inflammation. Negative for in situ or invasive cancer. By this tolerated the procedure with no complaints and no difficulty. Caffeine: Seldom Nicotine: Negative GI bloating: Negative Family history: Maternal aunt: Cervical cancer Maternal aunt: Breast cancer Hormonal history: Menarche: 12 , breast-fed no, age of first. 16 Menopause: Hysterectomy a 51 ovary removed and for fibroid tumors control pills: 5 years Hormones: Negative Past surgical history: Hysterectomy Bilateral breast biopsies Cholecystectomy [id number]-[id number], has lost 70 pounds to 2 years ago Appendectomy cardiac stint 10-08-19 Medical history: Hypertension Diabetes patient on aspirin and plavic after a cardiac stint Social History: smoke: none alcohol: noen drugs: none - Constitutional Constitutional: Denies chills, Denies fever - EENT Eyes: denies blurred vision, denies pain Ears: deny: decreased hearing, tinnitus Ears, nose, mouth and throat: Denies headache, Denies sore throat - Breasts Breasts: bilateral: as per HPI - Cardiovascular Comment: cardiac stint - Respiratory Comment: sleep apnea Respiratory: Denies cough, - Gastrointestinal Gastrointestinal: Denies abdominal pain, Denies diarrhea, Denies nausea, Denies vomiting - Genitourinary (Female) Genitourinary: Denies dysuria, Denies hematuria - Menstruation Menstruation: Reports post hysterectomy - Musculoskeletal Comment: arthritis Musculoskeletal: Denies myalgias - Integumentary Integumentary: Denies pruritus, Denies rash - Neurological Neurological: Denies numbness, Denies weakness - Psychiatric Psychiatric: Denies anxiety, Denies depression - Endocrine Endocrine: Denies fatigue, Denies weight change - Hematologic/Lymphatic Comment: aspirin and plavic Hematologic/Lymphatic: Reports as per HPI - Allergic/Immunologic Allergic/Immunologic: Reports as per HPI Objective - Exam BMI 41.4 - Constitutional General appearance: Present: obese - EENT Eyes: Present: EOMI ENT: Present: hearing grossly normal - Neck Neck: Present: normal ROM - Respiratory Respiratory: bilateral: CTA - Cardiovascular Heart sounds: normal: S1, S2 Abnormal Heart Sounds: Present: systolic murmur - Integumentary Integumentary Comment(s): Biopsy site left breast clean and dry, no evidence of any infection or hematoma Integumentary: Present: normal turgor Assessment and Plan Assessment: Impression: Hypertension Diabetes patient on aspirin and plavic after a cardiac stint; patient to be started aspirin and Plavix the day after the procedure Stereotactic core biopsy left breast/benign fibrocystic changes Plan: 1. Medical management of medical conditions 2. Patient back on aspirin and Plavix 3. Repeat left breast mammogram and physician exam in 6 months and if patient notes anything of concern she will see us sooner Cc: DR. Pate encounter 15 minutes time spent in reviewing medical records, physical examination, and counseling.
== END | disposition home or self-care (01) ==
LOC: WWCWWP 11:08
PROVIDERS: ATTEND Surgery
DX: N60.12 Diffuse cystic mastopathy of left breast (principal); E11.9 Type 2 diabetes mellitus without complications; I10 Essential (primary) hypertension; Z79.02 Long term (current) use of antithrombotics/antiplatelets; Z95.5 Presence of coronary angioplasty implant and graft; Z79.82 Long term (current) use of aspirin

== ENCOUNTER → 2020-06-07 | Outpatient (CLI) | payer MEDICARE ==
[2020-06-07 18:14] LABS: Chol/HDL Ratio 2.66; LDL Cholesterol,Calculated 54.6 mg/dL (0.0-131.0); VLDL Calculation 13.4 mg/dL (5.00-40.00)
== END | disposition home or self-care (01) ==
LOC: LABWHC1 09:31
PROVIDERS: ATTEND Nurse Practitioner Adult Health
DX: E78.2 Mixed hyperlipidemia (principal)
CPT/HCPCS: 36415; 80061; 84450; 84460

== ENCOUNTER → 2020-10-29 | Outpatient (CLI) | payer MEDICARE ==
--- NOTE | 2020-11-01 08:33 | MM ---
Reason for exam: follow-up at short interval from prior study. Last mammogram was performed 7 months ago. History: Patient is postmenopausal. Family history of breast cancer in aunt. Benign MG stereo VAD BX LT of the left breast, April 29, 2020. Benign ultrasound-guided core biopsy of the right breast, May 11, 2004. Benign ultrasound-guided core biopsy of the right breast, May 11, 2004. Benign excisional biopsy of the right breast, May 04, 1997. Cyst aspiration of the left breast. Cyst aspiration of the right breast. 2 core biopsies of the right breast. Excisional biopsy of the left breast. Excisional biopsy of the right breast. Took hormonal contraceptives for 5 years. Physical Findings: Nurse did not find any significant physical abnormalities on exam. MG 3D Diag Mammo W/Cad LT CC and MLO view(s) were taken of the left breast. Prior study comparison: March 18, 2020, left breast MG work up mamm w CAD LT. March 10, 2020, bilateral MG screening mammo w CAD. The breast tissue is heterogeneously dense. This may lower the sensitivity of mammography. There are benign appearing round calcifications in the left breast. Previous mammotome biopsy in the left breast. There is no discrete abnormality. These results were verbally communicated with the patient and result sheet given to the patient on 10/29/20. ASSESSMENT: Benign, BI-RAD 2 RECOMMENDATION: Return to routine screening mammogram schedule for both breasts. Back on schedule.
== END | disposition home or self-care (01) ==
LOC: RADMAMWWP 14:28
PROVIDERS: ATTEND Surgery
DX: R92.2 Inconclusive mammogram (principal); Z78.0 Asymptomatic menopausal state; Z80.3 Family history of malignant neoplasm of breast
CPT/HCPCS: 77065; G0279; 77061

== ENCOUNTER → 2020-12-16 | Outpatient (CLI) | payer MEDICARE ==
--- NOTE | 2020-12-16 18:00 | SFUN ---
SLEEP CENTER FOLLOW UP NOTE DATE OF SERVICE: 12/16/2020 This 65-year-old lady has been followed in Sleep Center for treatment of obstructive sleep apnea-hypopnea syndrome. The patient continues to use her CPAP equipment. She has more energy in the morning after using CPAP. Chicken Sleepiness Scale is slightly increased to 11. I checked her CPAP unit. Pressure is 10 cm of water. For the last month, patient used it 10/ nights with average usage 5.6 hours per night. Leak is 18 L/minute. Apnea- hypopnea index is normal at 0.8. The patient lost her daughter during this month and she was not able to use equipment every night. MEDICATIONS: 1. Metoprolol 25 mg twice a day. 2. Metformin 500 mg twice a day. 3. Allopurinol 300 mg once a day. 4. Gabapentin 400 mg 3 times a day. 5. Atorvastatin 40 mg once a day. 6. Lansoprazole 30 mg once a day. 7. Lisinopril 10 mg once a day. 8. B12, calcium, multivitamins, supplements. 9. Clopidogrel 75 mg once a day. 10.Aspirin 81 mg once a day. PHYSICAL EXAMINATION: GENERAL: Pleasant patient in no distress. VITAL SIGNS: BP 125/74, HR 85, RR 15, height 5 feet 2 inches, weight 234.4, temperature 96.8, oxygen saturation at room air 96%, body mass index 42.7. Weight is about the same as during previous visit. HEENT: MOHSEN ERICKSONMI, evaluation of oropharynx showed tongue protrudes midline. Low position of soft palate. NECK: Supple, no JVD. Thyroid is not palpable. LUNGS: Clear to percussion and to auscultation. Good air exchange. No wheezing or rhonchi. HEART: S1, S2 regular. No murmurs, gallops, or rubs. ABDOMEN: Soft and nontender. Bowel sounds are present. No organomegaly appreciated. EXTREMITIES: No clubbing or cyanosis. CUSTOM APPLICATOR: Awake, alert, and oriented X3. Cranial nerves 2 to 7 intact. There is no fasciculation or atrophy. noted. No focal deficits observed. IMPRESSION: 1. Obstructive sleep apnea-hypopnea syndrome; normal respiration on CPAP. 2. Obesity. Body mass index 42.7. 3. Hypertension. 4. Diabetes mellitus. 5. Gout. 6. Hyperlipidemia. 7. Status ost bariatric surgery. PLAN: 1. Patient will continue to use PAP equipment every night for the whole night. 2. Sleep hygiene with regular time in bed for at least 7-1/2 to 8 hours. 3. Precautions related to driving. No driving if feeling sleepiness. 4. I will maintain all necessary prescription for PAP supplies including mask, tube, filters. 5. Watching weight. 6. Follow-up visit in 6 months or earlier if patient has any problems. Thank you very much for allowing me to participate in the management of your patient. Sincerely, Niranjan Denise MD, PhD, FAASM Diplomat of [employer] Sleep Medicine Board of [employer] Technical Support Director of [facility] [place] MMODL / ANGN: [id number] /
== END ==
LOC: SLEEP 14:17
PROVIDERS: ATTEND Internal Medicine
DX: G47.33 Obstructive sleep apnea (adult) (pediatric) (principal); E66.9 Obesity, unspecified; Z99.89 Dependence on other enabling machines and devices; Z68.41 Body mass index [BMI] 40.0-44.9, adult; I10 Essential (primary) hypertension; E11.9 Type 2 diabetes mellitus without complications; M10.9 Gout, unspecified; E78.5 Hyperlipidemia, unspecified; Z98.84 Bariatric surgery status; Z79.84 Long term (current) use of oral hypoglycemic drugs; Z79.899 Other long term (current) drug therapy

== ENCOUNTER → 2022-01-19 | Outpatient (CLI) | payer MEDICARE ==
[2022-01-19 19:30] LABS: Chol/HDL Ratio 2.36 Ratio; LDL Cholesterol,Calculated 50.4 mg/dL (0.0-131.0); VLDL Calculation 14.08 mg/dL (5.00-40.00)
[2022-01-19 20:13] LABS: ALT 31 U/L (8-44); AST 21 U/L (13-35); Albumin 4.4 g/dL (3.8-4.9); Albumin/Globulin Ratio 1.39 (1.60-3.17); Alkaline Phosphatase 106 U/L (41-126); BUN/Creat Ratio 20.71 Ratio (12.00-20.00); Calcium 9.5 mg/dL (8.7-10.3); Carbon Dioxide 23.7 mmol/L (20.0-27.5); Chloride 108 mmol/L (96-109); Globulin 3.1 g/dL (1.6-3.3); Glucose 98 mg/dL (70-110); Non-African American GFR(CKD) 39.1 (60.0-200.0); Potassium 6.2 mmol/L (3.5-5.5); Sodium 140 mmol/L (135-145); Total Protein 7.5 g/dL (6.2-8.2)
[2022-01-19 20:39] LABS: African American GFR (CKD) 45.3 (60.0-200.0)
== END | disposition home or self-care (01) ==
LOC: LABWHC1 11:33
PROVIDERS: ATTEND Internal Medicine Interventional Cardiology
DX: E78.2 Mixed hyperlipidemia (principal)
CPT/HCPCS: 36415; 80053; 80061

== ENCOUNTER → 2022-01-23 | Outpatient (CLI) | payer MEDICARE ==
--- NOTE | 2022-01-23 10:24 | XR ---
EXAMINATION TYPE: XR chest 2V DATE OF EXAM: 01/23/2022 COMPARISON: Chest x-ray October 22, 2012 HISTORY: Sarcoidosis. TECHNIQUE: Frontal and lateral views of the chest are obtained. FINDINGS: Stable focal linear scarring in the left mid lung laterally on frontal view less well seen on the lateral view likely in the lingula. Right lung remains clear. No pleural effusion or pneumoth orax seen bilaterally. There is no focal air space opacity, pleural effusion, or pneumothorax seen. The cardiac silhouette size is stable and upper limits of normal. The osseous structures are intact . Cholecystectomy clips noted on lateral view. IMPRESSION: Chronic lingular linear scarring. No acute infiltrate.
[2022-01-23 14:30] LABS: African American GFR (CKD) 48.6 (60.0-200.0); BUN/Creat Ratio 21.59 Ratio (12.00-20.00); Blood Urea Nitrogen 28.5 mg/dL (9.0-27.0); Calcium 9.6 mg/dL (8.7-10.3); Carbon Dioxide 24.1 mmol/L (20.0-27.5); Non-African American GFR(CKD) 41.9 (60.0-200.0); Potassium 5.7 mmol/L (3.5-5.5)
== END | disposition home or self-care (01) ==
LOC: LABWHC1 09:33
PROVIDERS: ATTEND Internal Medicine Interventional Cardiology
DX: D86.9 Sarcoidosis, unspecified (principal); E87.5 Hyperkalemia; J98.4 Other disorders of lung
CPT/HCPCS: 36415; 71046; 80048

== ENCOUNTER → 2022-08-30 | Outpatient (CLI) | payer MEDICARE ==
[2022-08-30 09:57] LABS: ALT 33 U/L (4-34); AST 32 U/L (14-36); African American GFR (CKD) 46 (>60 ml/min/1.73 sqM); Albumin 4.1 g/dL (3.5-5.0); Albumin/Globulin Ratio 1.3; Alkaline Phosphatase 100 U/L (38-126); Anion Gap 11 mmol/L; Blood Urea Nitrogen 27 mg/dL (7-17); Carbon Dioxide 23 mmol/L (22-30); Chloride 109 mmol/L (98-107); Globulin 3.2 g/dL; Glucose 124 mg/dL (74-99); Non-African American GFR(CKD) 40 (>60 ml/min/1.73 sqM); Potassium 5.3 mmol/L (3.5-5.1); Sodium 143 mmol/L (137-145); Total Bilirubin 0.5 mg/dL (0.2-1.3); Total Protein 7.3 g/dL (6.3-8.2)
[2022-08-31 11:43] LABS: Chol/HDL Ratio 2.16 Ratio; LDL Cholesterol,Calculated 40.3 mg/dL (0.0-131.0); VLDL Calculation 17.64 mg/dL (5.00-40.00)
== END | disposition home or self-care (01) ==
LOC: LABWHC1 08:23
PROVIDERS: ATTEND Internal Medicine Interventional Cardiology
DX: E78.2 Mixed hyperlipidemia (principal)
CPT/HCPCS: 36415; 80053; 80061

== ENCOUNTER → 2022-09-27 | Outpatient (CLI) | payer MEDICARE ==
[2022-09-27 16:07] LABS: Chloride 108 mmol/L (96-109); Sodium 144 mmol/L (135-145)
[2022-09-27 16:10] LABS: HCT 34.6 % (37.2-46.3); HGB 10.5 d/dL (12.0-15.0); MCH 30.5 pg (27.0-32.0); MCHC 30.3 d/dL (32.0-37.0); MCV 100.6 FL (80.0-97.0); Mean Platelet Volume 10.3 FL (9.5-12.2); NRBC Per 100 WBC 0 X 10*3/uL (0.00-0.01); Platelet Count 262 X 10*3/uL (140-440); RBC 3.44 X 10*6/uL (4.10-5.20); RDW 14.5 % (11.5-14.5); WBC 5.63 X 10*3/uL (4.50-10.00)
== END | disposition home or self-care (01) ==
LOC: LABPAT 09:48
PROVIDERS: ATTEND Internal Medicine Interventional Cardiology
DX: Z01.812 Encounter for preprocedural laboratory examination (principal); R94.39 Abnormal result of other cardiovascular function study
CPT/HCPCS: 80051; 82565; 84520; 85027

== ENCOUNTER → 2023-04-04 | Outpatient (CLI) | payer MEDICARE ==
--- NOTE | 2023-04-05 08:49 | MM ---
Reason for Exam: Screening (asymptomatic). Last mammogram was performed 3 year(s) and 1 month(s) ago. Patient History: Menarche at age 12. First Full-Term at age 16. Left ovary removed at age 45. Right ovary removed at age 45. Hysterectomy at age 45. Postmenopausal. Patient used Hormonal Contraceptives for 5 years. Cyst Aspiration on the Right side. Cyst Aspiration on the Left side. Core Biopsy on the Right side. Core Biopsy on the Right side. Excisional Biopsy on the Right side. Excisional Biopsy on the Left side. 04/29/2020, Benign Core Biopsy on the left side. 05/11/2004, Benign Ultrasound-Guided Core Biopsy on the right side. 05/11/2004, Benign Ultrasound-Guided Core Biopsy on the right side. 05/04/1997, Benign Excisional Biopsy on the right side. Maternal aunt had breast cancer. Risk Values: Annie 5 year model risk: 1.8%. NCI Lifetime model risk: 5.9%. Prior Study Comparison: 03/10/2020 Bilateral Screening Mammogram, [facility]. 03/18/2020 Left Diagnostic Mammogram, [facility]. 10/29/2020 Left Diagnostic Mammogram, [facility]. Tissue Density: The breast tissue is heterogeneously dense. This may lower the sensitivity of mammography. Findings: Analyzed By CAD. Bilateral breast biopsy clips. There is no suspicious group of microcalcifications or new suspicious mass. Benign-appearing calcifications bilaterally. Overall Assessment: Benign, BI-RAD 2 Management: Screening Mammogram of both breasts in [address] [facility] will attempt to contact patient to return for supplemental views and ultrasound if indicated. Patient should continue monthly self-breast exams. A clinical breast exam by your physician is recommended on an annual basis. This exam should not preclude additional follow-up of suspicious palpable abnormalities. Note on Annie scores and lifetime risk: 1. A Annie score greater than 3% is considered moderate risk. If this is the case, consider specialist referral to assess eligibility for a risk reducing agent. 2. If overall lifetime risk for the development of breast cancer is 20% or higher, the patient may qualify for future screening with alternating mammogram and breast MRI. Electronically signed and approved by: Saman Khanna DO
== END | disposition home or self-care (01) ==
LOC: RADMAMWWP 16:25
PROVIDERS: ATTEND Family Medicine
DX: Z12.31 Encounter for screening mammogram for malignant neoplasm of breast (principal); Z80.3 Family history of malignant neoplasm of breast; Z78.0 Asymptomatic menopausal state
CPT/HCPCS: 77063; 77067

== ENCOUNTER → 2023-05-29 | Outpatient (CLI) | payer MEDICARE ==
[2023-05-29 17:52] LABS: Basophils # (A) 0.01 X 10*3/uL (0.00-0.10); Basophils % (A) 0.2 %; Eosinophils # (A) 0.12 X 10*3/uL (0.04-0.35); HCT 33.8 % (37.2-46.3); HGB 10.4 g/dL (12.0-15.0); Immature Grans, Automated 0 %; Lymphocytes # (A) 2.01 X 10*3/uL (0.90-5.00); Lymphocytes % (A) 50.1 %; MCH 30.4 pg (27.0-32.0); MCHC 30.8 g/dL (32.0-37.0); MCV 98.8 FL (80.0-97.0); Monocytes # (A) 0.33 X 10*3/uL (0.20-1.00); Monocytes % (A) 8.2 %; NRBC Per 100 WBC 0 X 10*3/uL (0.00-0.01); Neutrophils # (A) 1.54 X 10*3/uL (1.80-7.70); Neutrophils % (A) 38.5 %; Platelet Count 229 X 10*3/uL (140-440); RBC 3.42 X 10*6/uL (4.10-5.20); RDW 14.5 % (11.5-14.5); WBC 4.01 X 10*3/uL (4.50-10.00)
[2023-05-29 20:52] LABS: BUN/Creat Ratio 19.09 Ratio (12.00-20.00); Chol/HDL Ratio 2.02 Ratio; Glucose 109 mg/dL (70-110); LDL Cholesterol,Calculated 34.2 mg/dL (0.0-131.0); VLDL Calculation 13.34 mg/dL (5.00-40.00)
[2023-05-29 20:53] LABS: ALT 37 U/L (8-44); AST 31 U/L (13-35); Albumin/Globulin Ratio 1.43 Ratio (1.60-3.17); Alkaline Phosphatase 117 U/L (41-126); Calcium 8.8 mg/dL (8.7-10.3); Chloride 106 mmol/L (96-109); Globulin 2.8 g/dL (1.6-3.3); Sodium 140 mmol/L (135-145); T4, Free (Free Thyroxine) 1.07 ng/dL (0.80-1.80); Total Bilirubin 0.4 mg/dL (0.3-1.2); Total Protein 6.8 g/dL (6.2-8.2)
== END | disposition home or self-care (01) ==
LOC: LABPAT 12:07
PROVIDERS: ATTEND Internal Medicine Interventional Cardiology
DX: Z01.812 Encounter for preprocedural laboratory examination (principal); I25.10 Atherosclerotic heart disease of native coronary artery without angina pectoris; I10 Essential (primary) hypertension; E78.2 Mixed hyperlipidemia
CPT/HCPCS: 36415; 80053; 80061; 82306; 82607; 82746; 84439; 84443; 85025; 86141

== ENCOUNTER 2023-06-04 06:57 | Day surgery (SDC) | payer MEDICARE ==
[~2023-06-04 06:57] MED LIST changes: -ATORVASTATIN 80 MG TAB PO STA; -SODIUM CHLORIDE 0.9% 1,000 ML in EMPTY BAG 1 BAG IV ONE; +SODIUM CHLORIDE 0.9% 1,000 ML in EMPTY BAG 1 BAG IV SCH
[2023-06-04] MEDS: SODIUM CHLORIDE 0.9% 1,000 ML IV ONE (07:18)
[2023-06-04 07:36] LABS: Glucose,Whole Blood 159 mg/dL (70-110)
[2023-06-04 07:51] VITALS: RESP 16; TEMP 98.3
[2023-06-04] MEDS ORDERED: VERAPAMIL 2.5 MG/ML 2 ML AMP ONE (08:46)
[2023-06-04] MEDS ORDERED: fentaNYL (PF) 50 MCG/ML 2 ML AMP ONE (08:46)
[2023-06-04] MEDS ORDERED: LIDOCAINE 1% INJ 10MG/ML (20 ML MDV) ONE (08:55)
[2023-06-04] MEDS: fentaNYL (PF) 50 MCG/ML 2 ML AMP IVP ONE (10:04)
[2023-06-04] MEDS: LIDOCAINE 1% INJ 10MG/ML (5 ML VIAL-PF) SQ ONE (10:08)
[2023-06-04] MEDS: VERAPAMIL SYRINGE (5 MG/10 ML) INTRAARTER ONE (10:10)
[2023-06-04] MEDS: MIDAZOLAM 2 MG/2 ML VIAL IVP ONE (10:11)
[2023-06-04] MEDS: HEPARIN SODIUM 1,000 UN/ML (10ML VL) IVP ONE ×3 (10:20→10:52)
[2023-06-04] MEDS ORDERED: CLOPIDOGREL 75 MG TAB ONE (10:34)
[2023-06-04] MEDS: CLOPIDOGREL 75 MG TAB PO ONE (10:37)
[2023-06-04] MEDS: IOPAMIDOL-370 100ML BTL INJ ONE ×3 (10:41→11:20)
[2023-06-04] MEDS ORDERED: NITROGLYCERIN SL TABS 0.4 MG TAB SUBLINGUAL PRN (11:42)
[2023-06-04] MEDS ORDERED: ATROPINE SULFATE 0.1 MG/ML 10ML SYRINGE IV PRN (11:42)
[2023-06-04] MEDS ORDERED: RX INFO: IV CONTRAST WAS GIVEN 1 EACH MISC MISCELLANE PRN (11:42)
[2023-06-04] MEDS ORDERED: MAG HYDROX/AL HYDROX/SIMETH 30 ML CUP PO PRN (11:42)
[2023-06-04] MEDS ORDERED: ZOLPIDEM 5 MG TAB PO PRN (11:42)
[2023-06-04] MEDS ORDERED: SODIUM CHLORIDE 0.9% 1,000 ML in EMPTY BAG 1 BAG IV SCH (11:45)
--- NOTE | 2023-06-04 11:54 | P.CARDCATH ---
Date of Procedure: 06/04/23 Description of Procedure: Cardiac Catheterization: The patient is a 67-year-old female with known history of hypertension, hyperlipidemia, diabetes mellitus status post PCI of the LAD in 2019 who has been complaining of dyspnea and had an abnormal MPI. Recommendations were made regarding cardiac catheterization, the risks and the complications were discussed with the patient who is in full understanding and agreement. Procedure Description: Patient was brought to laboratory mechanical technician in fasting semi-sedated state after receiving Fentanyl and Benadryl achieiving moderate conscious sedated state. Using Xylocaine Anesthesia and modified Seldinger technique, a 6-Botswanan sheath was introduced in the right radial artery . Subsequently, selective coronary angiography was performed using a 5-[place]wanan 5 bend right Yuli and 3.5 left bend Yuli catheter. Multiple views of the coronary artery including hemiaxial views were obtained. The right Yuli catheter was used to cross the aortic valve and LVEDP was calculated. PCI: after removing the catheters a 6 [place] EBU 3.75 guiding catheter was introduced into the system and after cannulating the left main 8.014 BMW J-wire was positioned in the distal LAD subsequently a [employer] [place] eye IVUS catheter was introduced and images were obtained. There was evidence of under deployed stent as well as in-stent restenosis. Subsequently a 3.0 x 12 mm NC trek was advanced and 2 inflations at 10 akash were done, after removing the catheter repeat IVUS imaging was performed and subsequently a 3.5 x 18 mm Xience da point was deployed at 16 akash. Repeat IVUS imaging was performed and then a 3.75 x 12 mm NC trek was advanced and 1 inflation in the distal segment of the stent at 10 akash was done and a 4.0 x 12 mm NC trek balloon was advanced for an inflation in the proximal segment of the stent at 10 akash. Repeat IVUS imaging was performed and after that the wire was removed images were obtained and revealed stable successful stenting. Following that, catheter and sheath were removed. Hemostasis was obtained with deployment of vascular band . There was no immediate complication. Patient was returned to room in stable condition. Of note, the patient received a total of 7500 Units of intravenous heparin as well as intra-arterial verapamil. She received an oral loading dose of clopidogrel. Her ACT was followed. She has no significant chest discomfort or EKG changes. Findings: Left main: This is a large size vessel, bifurcating into LAD and left circumflex, the distal left main has 10 to 20% plaque with no high-grade stenosis. LAD: This is a large size vessel, reaching to the apex the proximal stented segment has a 90% stenosis the rest of the vessel has no high-grade stenosis Left circumflex: This is a nondominant vessel large in caliber giving rise to a very proximal first obtuse marginal branch subsequently giving rise to a second obtuse marginal branch that small in caliber the third obtuse marginal branch is moderate in caliber. The left circumflex has mild intimal disease. RCA: This is a large dominant vessel, bifurcating to PDA and PLV the right coronary artery in the mid and distal segment has intimal disease of 10 to 20% Left Ventriculogram: Not performed Hemodynamics: There was a 30 mm gradient across the aortic valve, LVEDP was 18- 20 mmHg Conclusion: 1. In-stent restenosis of the proximal LAD 2. Mild disease in the left circumflex and the RCA 3. Mild to moderate aortic stenosis 4. Successful stenting of the proximal LAD with reduction of stenosis from 90% to less than 5% with IVUS imaging Recommendations: The patient will continue on aspirin and clopidogrel without any interruption for 6 months in addition to aggressive coronary risks modifications, maintaining LDL to less than 70 mg/dL. The findings and the recommendations were discussed with the patient and the family and they were in full understanding and agreement. Duration of sedation is 72 minutes.
[2023-06-04 13:58] VITALS: BP 121/60; PULSE 80
[2023-06-04] MEDS ORDERED: METOPROLOL TARTRATE 25 MG TAB PO SCH (21:00)
[2023-06-04] MEDS ORDERED: ATORVASTATIN 80 MG TAB PO SCH (21:00)
[2023-06-05] MEDS ORDERED: CLOPIDOGREL 75 MG TAB PO SCH (09:00)
[2023-06-05] MEDS ORDERED: ASPIRIN 81 MG PO SCH (09:00)
[2023-06-05] MEDS ORDERED: EZETIMIBE 10 MG TAB PO SCH (09:00)
[2023-06-05] MEDS ORDERED: ISOSORBIDE MONONITRATE ER 30 MG TAB.ER.24H PO SCH (09:00)
== END 2023-06-04 15:33 | disposition home or self-care (01) ==
LOC: CATHCVL 06:57
PROVIDERS: ATTEND Internal Medicine Interventional Cardiology
DX: I25.10 Atherosclerotic heart disease of native coronary artery without angina pectoris (principal); I35.0 Nonrheumatic aortic (valve) stenosis; I10 Essential (primary) hypertension; E78.5 Hyperlipidemia, unspecified; E11.9 Type 2 diabetes mellitus without complications
CPT/HCPCS: 93458; 92978; C9600; C1769 ×3; C1887; C1894; C1753; C1874; C1725 ×2; J2250; J2001; J3010; J1644; Q9967

== ENCOUNTER 2023-11-07 10:59 | Emergency (ER) | payer MEDICARE, OTHER ==
[2023-11-07 11:11] VITALS: TEMP 98.5
[2023-11-07 11:39] LABS: Basophils % (A) 0 %; Eosinophils # (A) 0.1 k/uL (0-0.7); Eosinophils % (A) 2 %; HCT 33.6 % (34.0-46.0); HGB 10.5 gm/dL (11.4-16.0); Hypochromasia Slight; Lymphocytes # (A) 1.6 k/uL (1.0-4.8); Lymphocytes % (A) 32 %; MCH 31.2 pg (25.0-35.0); MCHC 31.3 g/dL (31.0-37.0); MCV 99.8 fL (80.0-100.0); Macrocytosis Slight; Mean Platelet Volume 8.1; Monocytes # (A) 0.2 k/uL (0-1.0); Monocytes % (A) 3 %; Neutrophils % (A) 60 %; Platelet Count 228 k/uL (150-450); RBC 3.37 m/uL (3.80-5.40); RDW 15.4 % (11.5-15.5)
[2023-11-07 12:14] LABS: ALT 52 U/L (4-34); AST 125 U/L (14-36); African American GFR (CKD) 64 (>60 ml/min/1.73 sqM); Albumin 3.8 g/dL (3.5-5.0); Alcohol <10 mg/dL; Alkaline Phosphatase 75 U/L (38-126); Anion Gap 4 mmol/L; Blood Urea Nitrogen 19 mg/dL (7-17); Calcium 9.2 mg/dL (8.4-10.2); Carbon Dioxide 25 mmol/L (22-30); Chloride 109 mmol/L (98-107); Glucose 209 mg/dL (74-99); Non-African American GFR(CKD) 55 (>60 ml/min/1.73 sqM); Potassium 4.8 mmol/L (3.5-5.1); Sodium 138 mmol/L (137-145); Total Bilirubin 0.6 mg/dL (0.2-1.3); Total Protein 6.6 g/dL (6.3-8.2)
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
[2023-11-07] MEDS: KETOROLAC 15 MG/ML 1 ML VIAL IVP STA (13:15)
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
[2023-11-07] MEDS: PROPOFOL 10 MG/ML 20 ML VIAL IV ONE ×3 (15:14→15:20)
--- NOTE | 2023-11-07 15:29 | XR ---
EXAMINATION TYPE: XR ankle limited RT 1 view DATE OF EXAM: 11/07/2023 Comparison: Earlier today Clinical History: 67-year-old female post reduction Findings: There appears to be a persistent subtalar joint medial subluxation/dislocation. Bone fragment below t he medial malleolus measuring 1.6 cm. Donor site unclear. Generalized soft tissue swelling. Only the AP view is provided. Impression: Single AP view. Partial interval reduction of the subtalar joint. Alignment is slightly improved. Per sistent medial subluxation/dislocation. There is a 1.6 cm osseous density below the medial malleolus. The donor site is unclear.
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
[2023-11-07 15:36] VITALS: RESP 16
[2023-11-07 16:22] VITALS: BP 145/87; PULSE 78
[2023-11-07] MEDS: HYDROmorphone 1 MG/ML 1 ML SYRINGE IM STA (16:37)
--- NOTE | 2023-11-07 17:44 | XR ---
EXAMINATION TYPE: XR ankle limited RT DATE OF EXAM: 11/07/2023 COMPARISON: None HISTORY: Post reduction TECHNIQUE: AP view right ankle FINDINGS: There is are several subluxation of the talus in relation to the calcaneus. Has improved fr om the comparison earlier in the day Ankle mortise is visualized appears intact. Diffuse soft tissue swelling is present. IMPRESSION: 1. Partial reduction of a talocalcaneal subluxation.
--- NOTE | 2023-11-07 18:19 | XR ---
EXAMINATION TYPE: XR ankle limited RT DATE OF EXAM: 11/07/2023 COMPARISON: Prior ankle images HISTORY: Postreduction TECHNIQUE: AP view and lateral view of the right ankle are obtained. FINDINGS: Soft tissue swelling is diffusely over the right ankle. There appears to be an avulsion from the medi al malleolus better appreciated on the current exam. Previous talocalcaneal subluxation appears to be reduced. IMPRESSION: 1. Previous talocalcaneal subluxation reduced. Small avulsion suspected inferior lateral malleolus. 3. Diffuse soft tissue swelling.
--- NOTE | 2023-11-07 18:21 | XR ---
EXAMINATION TYPE: XR ankle limited RT DATE OF EXAM: 11/07/2023 COMPARISON: Earlier exams HISTORY: Post reduction TECHNIQUE: AP view right ankle FINDINGS: Ankle mortise appears intact. Avulsion from the inferior medial malleolus is again evident. Diffuse soft tissue swelling is present. No suspicious dislocation identified on this view. IMPRESSION: 1. Reduction previous talocalcaneal subluxation. 2. Avulsion at the medial malleolus. 3. Diffuse soft tissue swelling right ankle
--- NOTE | 2023-11-07 18:22 | XR ---
EXAMINATION TYPE: XR ankle complete RT DATE OF EXAM: 11/07/2023 COMPARISON: Earlier exams HISTORY: Post reduction TECHNIQUE: AP right ankle FINDINGS: Ankle mortise appears intact. Avulsion from the inferior medial malleolus is less well visu alized on this examination. Avulsion from the inferior lateral malleolus may be present. No dislocation evident on this exam. This is some limitation with overlying fiberglass splint. IMPRESSION: 1. Inferior medial lateral malleolar avulsions. 2. Previous subluxations appear reduced
--- NOTE | 2023-11-07 19:37 | CT ---
EXAMINATION TYPE: CT ankle RT wo con DATE OF EXAM: 11/07/2023 COMPARISON: Prior ankle film images HISTORY: rt ankle fx post reduction. CT DLP: 444.4 mGycm Automated exposure control for dose reduction was used. Contrast: None Technique: Axial images 2 mm sections. Reconstructed images in the coronal and sagittal plane. FINDINGS: Fiberglas splint is present. Soft tissue swelling ankle. There appears to be a fracture of the medial malleolus avulsion from the posterior inferior portion. Small fracture of the inferior posterior fibula is present. Alignment of the metatarsals appears normal with the tarsal region. There is a fracture of the inferior medial portion of the talus. This extends to the posterior margin . An additional small fracture is at the inferior medial portion of the talus on midportion. Addition al talar fracture is present extending to nearly the talocalcaneal junction. This does extend to the talonavicular region. There are multiple small calcifications anterior superior to the calcaneus. This appears to arise fro m the calcaneus. Talocalcaneal junction appears to have normal orientation at this time. Calcaneal cu boid junction appears normal. A small fracture from posterior corner of the cuboid or possibly anteri or lateral corner of the calcaneus is present. Calcaneal cuboid junction appears to have normal orien tation. IMPRESSION: 1. COMMINUTED FRACTURES OF THE TALUS INCLUDING THE ANTERIOR TALUS AND THE POSTERIOR MEDIAL TALUS. 2. COMMINUTED FRACTURE APPEARS TO ARISE FROM THE SUPERIOR ANTERIOR CALCANEUS. 3. AVULSIONS APPEAR TO BE PRESENT FROM BOTH MEDIAL AND LATERAL MALLEOLUS POSSIBLY THE CALCANEAL CUBO ID JUNCTION LATERALLY. 4. DIFFUSE SOFT TISSUE SWELLING AROUND THE ANKLE.
== END 2023-11-07 16:39 | disposition other institution (70) ==
LOC: EC 10:59
CPT/HCPCS: 29515; 36415; 70450; 71045; 71260; 72125; 72170; 74177; 80053; 80320; 84484; 85025; 86850; 86900; 86901; 93005; 96372; 96374; 96375; 99152; 99285

== ENCOUNTER → 2024-01-23 | Outpatient (CLI) | payer MEDICARE ==
[2024-01-23 16:10] LABS: ALT 27 U/L (8-44); AST 20 U/L (13-35); Albumin 4.4 g/dL (3.8-4.9); Albumin/Globulin Ratio 1.52 Ratio (1.60-3.17); Alkaline Phosphatase 128 U/L (41-126); BUN/Creat Ratio 16.27 Ratio (12.00-20.00); Blood Urea Nitrogen 17.9 mg/dL (9.0-27.0); Calcium 9.7 mg/dL (8.7-10.3); Carbon Dioxide 27.4 mmol/L (21.6-31.8); Chloride 103 mmol/L (96-109); Ferritin 94.4 ng/mL (10.0-291.0); Globulin 2.9 g/dL (1.6-3.3); Glucose 113 mg/dL (70-110); Iron 83 UG/DL (50-170); LDL Cholesterol,Calculated 54.6 mg/dL (0.0-131.0); Potassium 5.7 mmol/L (3.5-5.5); Sodium 141 mmol/L (135-145); Total Bilirubin 0.4 mg/dL (0.3-1.2); Total Iron Binding Capacity 386 UG/DL (228-460); Total Protein 7.3 g/dL (6.2-8.2); VLDL Calculation 18.82 mg/dL (5.00-40.00)
[2024-01-23 16:16] LABS: Basophils # (A) 0.03 X 10*3/uL (0.00-0.10); Basophils % (A) 0.6 %; Eosinophils # (A) 0.08 X 10*3/uL (0.04-0.35); Eosinophils % (A) 1.5 %; HCT 37.3 % (37.2-46.3); HGB 11.7 g/dL (12.0-15.0); Lymphocytes # (A) 2.42 X 10*3/uL (0.90-5.00); Lymphocytes % (A) 45.8 %; MCHC 31.4 g/dL (32.0-37.0); MCV 98.9 FL (80.0-97.0); Monocytes % (A) 5.7 %; NRBC Per 100 WBC 0 X 10*3/uL (0.00-0.01); Neutrophils # (A) 2.44 X 10*3/uL (1.80-7.70); Neutrophils % (A) 46.2 %; Platelet Count 294 X 10*3/uL (140-440); RBC 3.77 X 10*6/uL (4.10-5.20); RDW 14.2 % (11.5-14.5); WBC 5.28 X 10*3/uL (4.50-10.00)
== END | disposition home or self-care (01) ==
LOC: LABWHC1 11:07
PROVIDERS: ATTEND Family Medicine
DX: I10 Essential (primary) hypertension (principal); D64.9 Anemia, unspecified; E78.2 Mixed hyperlipidemia
CPT/HCPCS: 36415; 80053; 80061; 82728; 83540; 83550; 85025

== ENCOUNTER 2024-02-03 12:41 | Observation (INO) | payer MEDICARE ==
[2024-02-03] MEDS: SODIUM CHLORIDE 0.9% 1,000 ML IV STA (13:57)
[2024-02-03] MEDS: MECLIZINE 12.5 MG TAB PO STA (13:58)
--- NOTE | 2024-02-03 14:14 | ED ---
General Adult HPI - General Chief complaint: Syncope Stated complaint: Dizziness Time Seen by Provider: 02/03/24 12:45 Source: patient Mode of arrival: EMS Limitations: no limitations - History of Present Illness Initial comments: 68-year-old female with past medical history of diabetes, high blood pressure, high cholesterol who presents emergency department with vertiginous symptoms. States she was lying in bed around 6 AM she had sudden onset of room spinning sensation. She began having intractable nausea and vomiting around 1215 due to the vertigo. She denies history of this in the past. No head trauma. No recent upper respiratory infections. No history of stroke. Patient does not take any blood thinners. She denies any visual disturbance. No speech difficulties. She was given 4 mg of Zofran by EMS and it did help alleviate some of her symptoms. No fevers. No recent medication changes. No other alleviating, precipitating or modifying factors - Related Data Home Medications Medication Instructions Recorded Confirmed Aspirin [Adult Low Dose Aspirin EC] 81 mg PO DAILY 10/06/19 02/03/24 Cyanocobalamin [Vitamin B-12] 500 mcg PO DAILY 10/06/19 02/03/24 Ergocalciferol [Vitamin D2 1,250 mcg PO FR 10/06/19 02/03/24 (DRISDOL)] Gabapentin [Neurontin] 400 mg PO TID 10/06/19 02/03/24 Lansoprazole [Prevacid] 30 mg PO DAILY 10/06/19 02/03/24 Metoprolol Tartrate [Lopressor] 25 mg PO BID 10/06/19 02/03/24 metFORMIN HCL [Glucophage] 500 mg PO BID 10/06/19 02/03/24 Ezetimibe [Zetia] 10 mg PO DAILY 04/12/20 02/03/24 Isosorbide Mononitrate [Isosorbide 30 mg PO DAILY 09/20/22 02/03/24 Mononitrate ER] traMADol HCL 100 mg PO DAILY 09/20/22 02/03/24 Alendronate Sodium 70 mg PO FR 05/30/23 02/03/24 Acetaminophen [Tylenol Arthritis] 650 mg PO BID 11/07/23 02/03/24 Brimonidine Tartrate/Timolol 1 drop LEFT EYE BID 11/07/23 02/03/24 [Brimonidine-Timolol 0.2%-0.5%] Triamcinolone 0.1% Cream [Kenalog 1 applic TOPICAL BID PRN 11/07/23 02/03/24 0.1% Cream] traMADol HCL 100 mg PO HS PRN 11/07/23 02/03/24 Calcium 600mg-Vitamin D3(Unknown 1 tab PO BID 02/03/24 02/03/24 Dose) Melatonin 6 mg PO HS PRN 02/03/24 02/03/24 Multivitamins, Thera [Multivitamin 1 tab PO BID 02/03/24 02/03/24 (formulary)] Sennosides [Senokot] 17.2 mg PO BID PRN 02/03/24 02/03/24 allopurinoL 100 mg PO DAILY 02/03/24 02/03/24 Previous Rx's Medication Instructions Recorded Atorvastatin [Lipitor] 80 mg PO HS #90 tab 10/09/19 Nitroglycerin Sl Tabs [Nitrostat] 0.4 mg SUBLINGUAL Q5M PRN #25 tab 10/09/19 Clopidogrel [Plavix] 75 mg PO DAILY #90 tab 06/04/23 Allergies Allergy/AdvReac Type Severity Reaction Status Date / Time No Known Allergies Allergy Verified 02/03/24 20:12 Review of Systems ROS Statement: Those systems with pertinent positive or pertinent negative responses have been documented in the HPI. ROS Other: All systems not noted in ROS Statement are negative. Past Medical History Past Medical History: Coronary Artery Disease (CAD), Diabetes Mellitus, Hyperlipidemia, Hypertension, Sleep Apnea/CPAP/BIPAP Additional Past Medical History / Comment(s): heart murmur History of Any Multi-Drug Resistant Organisms: None Reported Past Surgical History: Appendectomy, Bariatric Surgery, Breast Surgery, Cholecystectomy, Heart Catheterization With Stent, Hysterectomy, Orthopedic Surgery Additional Past Surgical History / Comment(s): maximino-en-y bariatric surgery. benign excisional breast biopsies Past Anesthesia/Blood Transfusion Reactions: No Reported Reaction Past Psychological History: No Psychological Hx Reported Smoking Status: Never smoker Past Alcohol Use History: None Reported Past Drug Use History: None Reported - Past Family History Mother Family Medical History: No Reported History General Exam Limitations: no limitations General appearance: alert, in no apparent distress Head exam: Present: atraumatic, normocephalic, normal inspection Eye exam: Present: normal appearance, PERRL, EOMI. Absent: scleral icterus, conjunctival injection, periorbital swelling ENT exam: Present: normal exam, mucous membranes moist Neck exam: Present: normal inspection. Absent: tenderness, meningismus, lymphadenopathy Respiratory exam: Present: normal lung sounds bilaterally. Absent: respiratory distress, wheezes, rales, rhonchi, stridor Cardiovascular Exam: Present: regular rate, normal rhythm, normal heart sounds. Absent: systolic murmur, diastolic murmur, rubs, gallop, clicks GI/Abdominal exam: Present: soft, normal bowel sounds. Absent: distended, tenderness, guarding, rebound, rigid Extremities exam: Present: normal inspection, full ROM, normal capillary refill. Absent: tenderness, pedal edema, joint swelling, calf tenderness Back exam: Present: normal inspection Neurological exam: Present: alert, oriented X3, CN II-XII intact Psychiatric exam: Present: normal affect, normal mood Skin exam: Present: warm, dry, intact, normal color. Absent: rash Course Vital Signs 02/03/24 02/03/24 02/03/24 12:53 14:01 15:22 Temperature 97.4 F L 97.5 F L 97.6 F Pulse Rate 70 68 67 Respiratory 18 18 17 Rate Blood Pressure 160/79 172/96 160/81 O2 Sat by Pulse 95 98 95 Oximetry 02/03/24 02/03/24 17:10 18:52 Temperature 98.5 F Pulse Rate 66 70 Respiratory 17 16 Rate Blood Pressure 148/86 156/88 O2 Sat by Pulse 98 98 Oximetry Medical Decision Making - Medical Decision Making Was pt. sent in by a medical professional or institution (Dr. PA, [facility], urgent care, hospital, or [place] [facility] facility...) When possible be specific @ -[No] Did you speak to anyone other than the patient for history (EMS, parent, family, police, friend...)? What history was obtained from this source @ -[No] Did you review nursing and triage notes (agree or disagree)? Why? @ -[I reviewed and agree with nursing and triage notes] Were old charts reviewed (outside hosp., previous admission, EMS record, old EKG, old radiological studies, urgent care reports/EKG's, [place] health care facility records)? Report findings @ -[No old charts were reviewed] Differential Diagnosis (chest pain, altered mental status, abdominal pain women, abdominal pain men, vaginal bleeding, weakness, fever, dyspnea, syncope, headache, dizziness, GI bleed, back pain, seizure, CVA, palpatations, mental health, musculoskeletal)? @ -[not applicable] EKG interpreted by me (3pts min.). @ -Yes and demonstrates sinus rhythm with rate of 62. DE interval 215. QRS 89. QTc of 438. No acute ST segment elevations or depressions X-rays interpreted by me (1pt min.). @ -[None done] CT interpreted by me (1pt min.). @ -[None done] U/S interpreted by me (1pt. min.). @ -[None done] What testing was considered but not performed or refused? (CT, X-rays, U/S, labs)? Why? @ -[None] What meds were considered but not given or refused? Why? @ -[None] Did you discuss the management of the patient with other professionals (professionals i.e. , PA, [facility], lab, RT, psych nurse, secondary social studies teacher, parish visitor, te acher, customs and immigration officer, family caseworker)? Give summary @ -[No] Was smoking cessation discussed for >3mins.? @ -[No] Was critical care preformed (if so, how long)? @ -[No] Were there social determinants of health that impacted care today? How? (Homelessness, low income, unemployed, alcoholism, drug addiction, transportation, low edu. Level, literacy, decrease access to med. care, mcc, rehab)? @ -[No] Was there de-escalation of care discussed even if they declined (Discuss DNR or withdrawal of care, Hospice)? DNR status @ -[No] What co-morbidities impacted this encounter? (DM, HTN, Smoking, COPD, CAD, Cancer, CVA, ARF, Chemo, Hep., AIDS, mental health diagnosis, sleep apnea, morbid obesity)? @ -[None] Was patient admitted / discharged? Hospital course, mention meds given and route, prescriptions, significant lab abnormalities, going to OR and other pertinent info. @ -[hospital course] Undiagnosed new problem with uncertain prognosis? @ -[No] Drug Therapy requiring intensive monitoring for toxicity (Heparin, Nitro, Insulin, Cardizem)? @ -[No] Were any procedures done? @ -[No] Diagnosis/symptom? @ -[default] Acute, or Chronic, or Acute on Chronic? @ -[default] Uncomplicated (without systemic symptoms) or Complicated (systemic symptoms)? @ -[default] Side effects of treatment? @ -[No] Exacerbation, Progression, or Severe Exacerbation? @ -[No] Poses a threat to life or bodily function? How? (Chest pain, [place], [place], pneumonia, PE, COPD, DKA, ARF, appy, cholecystitis, CVA, Diverticulitis, Homicidal, Suicidal, threat to staff... and all critical care pts) @ -[No] - Lab Data Result diagrams: 02/03/24 13:47 02/03/24 17:30 Lab Results 02/03/24 02/03/24 02/03/24 Range/Units 13:47 13:47 14:17 WBC 5.0 (3.8-10.6) k/uL RBC 3.72 L (3.80-5.40) m/uL Hgb 11.4 (11.4-16.0) gm/dL Hct 36.5 (34.0-46.0) % MCV 98.3 (80.0-100.0) fL MCH 30.7 (25.0-35.0) pg MCHC 31.2 (31.0-37.0) g/dL RDW 14.6 (11.5-15.5) % Plt Count 239 (150-450) k/uL MPV 8.1 Neutrophils % 65 % Lymphocytes % 28 % Monocytes % 5 % Eosinophils % 1 % Basophils % 0 % Neutrophils # 3.3 (1.3-7.7) k/uL Lymphocytes # 1.4 (1.0-4.8) k/uL Monocytes # 0.2 (0-1.0) k/uL Eosinophils # 0.0 (0-0.7) k/uL Basophils # 0.0 (0-0.2) k/uL Hypochromasia Slight Sodium (137-145) mmol/L Potassium (3.5-5.1) mmol/L Chloride (98-107) mmol/L Carbon Dioxide (22-30) mmol/L Anion Gap mmol/L BUN (7-17) mg/dL Creatinine (0.52-1.04) mg/dL Est GFR (CKD-EPI)AfAm (>60 ml/min/1.73 sqM) Est GFR (CKD-EPI)NonAf (>60 ml/min/1.73 sqM) Glucose (74-99) mg/dL Plasma Lactic Acid Liban 1.9 (0.7-2.0) mmol/L Calcium (8.4-10.2) mg/dL Total Bilirubin (0.2-1.3) mg/dL AST (14-36) U/L ALT (4-34) U/L Alkaline Phosphatase (38-126) U/L Troponin I 0.017 (0.000-0.034) ng/mL Total Protein (6.3-8.2) g/dL Albumin (3.5-5.0) g/dL Urine Color Urine Appearance (Clear) Urine pH (5.0-8.0) Ur Specific Aneta (1.001-1.035) Urine Protein (Negative) Urine Glucose (UA) (Negative) Urine Ketones (Negative) Urine Blood (Negative) Urine Nitrite (Negative) Urine Bilirubin (Negative) Urine Urobilinogen (<2.0) mg/dL Ur Leukocyte Esterase (Negative) Urine RBC (0-5) /hpf Urine WBC (0-5) /hpf Ur Squamous Epith Cells (0-4) /hpf Amorphous Sediment (None) /hpf Urine Bacteria (None) /hpf 02/03/24 02/03/24 Range/Units 16:23 17:30 WBC (3.8-10.6) k/uL RBC (3.80-5.40) m/uL Hgb (11.4-16.0) gm/dL Hct (34.0-46.0) % MCV (80.0-100.0) fL MCH (25.0-35.0) pg MCHC (31.0-37.0) g/dL RDW (11.5-15.5) % Plt Count (150-450) k/uL MPV Neutrophils % % Lymphocytes % % Monocytes % % Eosinophils % % Basophils % % Neutrophils # (1.3-7.7) k/uL Lymphocytes # (1.0-4.8) k/uL Monocytes # (0-1.0) k/uL Eosinophils # (0-0.7) k/uL Basophils # (0-0.2) k/uL Hypochromasia Sodium 140 (137-145) mmol/L Potassium 5.1 (3.5-5.1) mmol/L Chloride 111 H (98-107) mmol/L Carbon Dioxide 28 (22-30) mmol/L Anion Gap 1 mmol/L BUN 11 (7-17) mg/dL Creatinine 0.79 (0.52-1.04) mg/dL Est GFR (CKD-EPI)AfAm 90 (>60 ml/min/1.73 sqM) Est GFR (CKD-EPI)NonAf 78 (>60 ml/min/1.73 sqM) Glucose 106 H (74-99) mg/dL Plasma Lactic Acid Liban (0.7-2.0) mmol/L Calcium 8.5 (8.4-10.2) mg/dL Total Bilirubin 0.5 (0.2-1.3) mg/dL AST 27 (14-36) U/L ALT 25 (4-34) U/L Alkaline Phosphatase 101 (38-126) U/L Troponin I (0.000-0.034) ng/mL Total Protein 6.8 (6.3-8.2) g/dL Albumin 3.8 (3.5-5.0) g/dL Urine Color Colorless Urine Appearance Cloudy H (Clear) Urine pH 6.0 (5.0-8.0) Ur Specific Aneta 1.003 (1.001-1.035) Urine Protein Negative (Negative) Urine Glucose (UA) Negative (Negative) Urine Ketones Negative (Negative) Urine Blood Negative (Negative) Urine Nitrite Negative (Negative) Urine Bilirubin Negative (Negative) Urine Urobilinogen <2.0 (<2.0) mg/dL Ur Leukocyte Esterase Negative (Negative) Urine RBC 4 (0-5) /hpf Urine WBC 4 (0-5) /hpf Ur Squamous Epith Cells 1 (0-4) /hpf Amorphous Sediment Rare H (None) /hpf Urine Bacteria Occasional H (None) /hpf Disposition Clinical Impression: Vertigo Disposition: ADMITTED IP TO THIS [facility] Condition: Stable Is patient prescribed a controlled substance at d/c from ED?: No Time of Disposition: 20:21 Decision to Admit Reason: Admit from EC Decision Date: 02/03/24 Decision Time: 20:21
[2024-02-03 14:35] LABS: Basophils % (A) 0 %; Eosinophils % (A) 1 %; HCT 36.5 % (34.0-46.0); HGB 11.4 gm/dL (11.4-16.0); Hypochromasia Slight; Lymphocytes # (A) 1.4 k/uL (1.0-4.8); Lymphocytes % (A) 28 %; MCH 30.7 pg (25.0-35.0); MCHC 31.2 g/dL (31.0-37.0); MCV 98.3 fL (80.0-100.0); Mean Platelet Volume 8.1; Monocytes # (A) 0.2 k/uL (0-1.0); Monocytes % (A) 5 %; Neutrophils # (A) 3.3 k/uL (1.3-7.7); Neutrophils % (A) 65 %; Platelet Count 239 k/uL (150-450); RBC 3.72 m/uL (3.80-5.40); RDW 14.6 % (11.5-15.5)
[2024-02-03 16:49] LABS: Amorphous Sediment,Urine Rare /hpf; Appearance,Urine Cloudy (Clear); Bacteria,Urine Occasional /hpf; Bilirubin,Urine Negative (Negative); Blood,Urine Negative (Negative); Color,Urine Colorless; Glucose,Urine (UA) Negative (Negative); Ketones,Urine Negative (Negative); Leukocyte Esterase,Urine Negative (Negative); Nitrite,Urine Negative (Negative); Protein,Urine Negative (Negative); RBC,Urine 4 /hpf (0-5); Specific Gravity,Urine 1.003 (1.001-1.035); Squamous Epithelial Cell,Urine 1 /hpf (0-4); Urobilinogen,Urine <2.0 mg/dL (<2.0); WBC,Urine 4 /hpf (0-5)
[2024-02-03 18:02] LABS: ALT 25 U/L (4-34); AST 27 U/L (14-36); African American GFR (CKD) 90 (>60 ml/min/1.73 sqM); Albumin 3.8 g/dL (3.5-5.0); Alkaline Phosphatase 101 U/L (38-126); Anion Gap 1 mmol/L; Blood Urea Nitrogen 11 mg/dL (7-17); Calcium 8.5 mg/dL (8.4-10.2); Carbon Dioxide 28 mmol/L (22-30); Chloride 111 mmol/L (98-107); Glucose 106 mg/dL (74-99); Non-African American GFR(CKD) 78 (>60 ml/min/1.73 sqM); Potassium 5.1 mmol/L (3.5-5.1); Sodium 140 mmol/L (137-145); Total Bilirubin 0.5 mg/dL (0.2-1.3); Total Protein 6.8 g/dL (6.3-8.2)
--- NOTE | 2024-02-03 19:17 | CT ---
EXAMINATION TYPE: CT brain wo con DATE OF EXAM: 02/03/2024 7:03 PM COMPARISON: 10/30/2023. CLINICAL INDICATION: Female, 68 years old with history of intractable dizziness, Patient lying in bed around 0600 started feeling "dizzy." Started having intractable nausea/vomiting around 1215. TECHNIQUE: Brain: Axial CT images of the brain were obtained with coronal and sagittal reformats created and rev iewed. Contrast used: None. Oral contrast used: None. CT DLP: 1087 mGycm, Automated exposure control for dose reduction was used. FINDINGS: Brain: Extra-axial spaces: No abnormal extra-axial fluid collections. Ventricular system: Within normal limits Cerebral parenchyma: No acute intraparenchymal hemorrhage or mass effect. The cueva-white junction is well differentiated. Cerebellum: Unremarkable. Mass effect: No evidence of midline shift. Intracranial vasculature: Atherosclerotic calcifications of the intracranial vessels. Soft tissues: Normal. Calvarium/osseous structures: No depressed skull fracture. Paranasal sinuses and mastoid air cells: Mild scattered paranasal sinus disease. Visualized orbits: Orbital contents are intact. IMPRESSION: No acute intracranial process. [facility], , 02/03/2024 7:15 PM
--- NOTE | 2024-02-03 19:26 | CT ---
EXAMINATION TYPE: CT angio head neck DATE OF EXAM: 02/03/2024 7:04 PM COMPARISON: CT head same day. CLINICAL INDICATION: Female, 68 years old with history of vertigo; PHH, Patient lying in bed around 0 600 started feeling "dizzy." Started having intractable nausea/vomiting around 1215. TECHNIQUE: Axially acquired helical CT angiogram of the head and neck was obtained with contrast. Axi al images are supplemented with 3D reconstructions and MIP images which were post-processed at an in dependent workstation. NASCET criteria used. Contrast used:65ml mL of Isovue 370 with IV Contrast, Oral contrast used: None. CT DLP: 605.9 mGycm, Automated exposure control for dose reduction was used. FINDINGS: CTA HEAD: No evidence of acute intracranial hemorrhage, mass effect, or midline shift. The ventricles, sulci, a nd cisterns are unremarkable. Bilaterally aphakia. Vertebral arteries: The vertebral arteries are patent. Vertebral artery dominance: Codominant Basilar artery: The basilar artery is intact. The basilar artery bifurcation is normal. Internal Carotid arteries: The cervical, petrous, cavernous and supraclinoid segments are normal. SHAHRZAD: Patent with no evidence of aneurysm. ACOM: Present without evidence of aneurysm. MCA: Patent with no evidence of aneurysm. FREIGHT UNLOADER: Patent with no evidence of aneurysm. PCOM: Hypoplastic bilaterally. Dural sinuses: Patent. CTA NECK: Right Carotid System: The common carotid artery and external carotid artery are patent. The carotid bifurcation demonstrate s no evidence of hemodynamically significant stenosis. The remaining portions of the internal carotid artery demonstrate normal size without significant narrowing. Left Carotid System: The common carotid artery and external carotid artery are patent. The carotid bifurcation demonstrate s no evidence of hemodynamically significant stenosis. The remaining portions of the internal carotid artery demonstrate normal size without significant narrowing. Vertebral arteries are patent without evidence hemodynamically significant stenosis. There is a three-vessel aortic arch. The origins of the great vessels are patent. No evidence of hemo dynamically significant stenosis. Upper thorax: Multiple right-sided rib injuries including rib to 3 and 4. There is a 90 Hounsfield un it 15 mm lesion near midline in the submental region. IMPRESSION: 1. No evidence of dissection of the cervical internal carotid arteries or vertebral arteries. 2. No any evidence of significant stenosis at the carotid bifurcations. 3. No evidence of intracranial high-grade stenosis or intracranial aneurysm. 4. Submental hyperdense lesion unchanged from 11/07/2023 consider further evaluation with ultrasound. 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 [facility], , 02/03/2024 7:24 PM
[2024-02-03] MEDS ORDERED: NALOXONE 0.4 MG/ML 1 ML VIAL IV PRN (20:34)
[2024-02-03] MEDS ORDERED: SENNOSIDES 8.6 MG TAB PO PRN (20:46)
[2024-02-03] MEDS ORDERED: MELATONIN 3 MG TABLET PO PRN (20:46)
[2024-02-03] MEDS: DEXAMETHASONE SOD PHOSPHATE 10 MG/ML 1 ML VIAL IVP STA (21:34)
[2024-02-03] MEDS: ACETAMINOPHEN TAB 325 MG TAB PO SCH (21:36)
[2024-02-03] MEDS: MULTIVITAMINS, THERA 1 EACH TAB PO SCH (21:37)
[2024-02-03] MEDS: metFORMIN 500 MG TAB PO SCH (21:37)
[2024-02-03] MEDS: METOPROLOL TARTRATE 25 MG TAB PO SCH (21:39)
[2024-02-03] MEDS: ATORVASTATIN 80 MG TAB PO SCH (21:39)
[2024-02-03] MEDS: CALCIUM CARB-VIT D 500 MG-5 MCG TAB PO SCH (21:40)
[2024-02-03] MEDS: GABAPENTIN 400 MG CAP PO SCH (22:21)
[2024-02-03] MEDS: NON FORMULARY DRUG (Brimonidine Tartrate/Timolol [Brimonidine-Timolol 0.2%-0.5%] 5 ML Drop LEFT EYE SCH (22:21)
--- NOTE | 2024-02-03 23:03 | P.HPIM ---
History of Present Illness H&P Date: 02/03/24 Chief Complaint: Dizziness History of present illness; 68-year-old female with PMH of CAD, diabetes mellitus, hyperlipidemia, and hypertension presents with complaints of dizziness. States this morning when she woke up she was instantly dizzy and " felt like the room was spinning around her ". Reports trying to get up and go to the bathroom, but the dizziness continued. At this time she admits to nausea and vomiting. States that when she moves her head to the right or left while laying down the dizziness becomes worse. Notes that the dizziness had been continuous throughout the day so she decided to call EMS and be evaluated in the emergency room. Admits to dizziness, nausea and vomiting, but denies headache, chest pain, shortness of breath, constipation, diarrhea, abdominal pain, diaphoresis, recent sick contacts, and lower extremity swelling. Patient is unable to say if she experienced lightheadedness but denied syncope or falls. At time of interview patient reports she is not dizzy, unless she moves her head around. Labs: WBC 5, RBC 3.72, hemoglobin 11.4, MCV 98.3, sodium 140, calcium 5.1, chlor grazyna 111, glucose 106, lactate 1.9, and troponin 0.017. Imaging: - EKG done in the ER showed heart rate of 62 bpm, sinus rhythm with first-degree AV block, and QTc 438. - ER CT Head: No acute intracranial process - ER CTA head and neck: No evidence of dissection of the cervical internal carotid arteries or vertebral arteries, no evidence of significant stenosis at the carotid bifurcations, no evidence of intracranial high-grade stenosis or intracranial aneurysm, and submental hyperdense lesion unchanged from 11/07/2023. REVIEW OF SYSTEMS: As stated above in HPI. The rest of the 14-point review of systems is negative. PHYSICAL EXAMINATION: GENERAL: The patient is alert and oriented x3, not in any acute distress. Well developed, well nourished. Morbidly obese. HEENT: Pupils are round and equally reacting to light. EOMI. No scleral icterus. No conjunctival pallor. Normocephalic, atraumatic. CARDIOVASCULAR: S1 and S2 present. No murmurs, rubs, or gallops. PULMONARY: Chest is clear to auscultation b/l, no wheezing or crackles. ABDOMEN: Soft, nontender, nondistended, normoactive bowel sounds. No palpable organomegaly. MUSCULOSKELETAL: No joint swelling or deformity. EXTREMITIES: No cyanosis, clubbing, or pedal edema. NEUROLOGICAL: Gross neurological examination did not reveal any focal deficits. 5 out of 5 motor strength in the upper and lower extremities. CN II through XII intact. Dizziness reproducible with rotating patient's head to the right or left. SKIN: No rashes. Assessment and Plan 68-year-old female with PMH of CAD, diabetes mellitus, hyperlipidemia, and hypertension presents with complaints of dizziness. Patient will be worked up for further investigation into underlying cause of dizziness. # Dizziness: BPPV versus less likely vestibular neuritis versus Mnire's disease versus vestibular migraine -Patient received meclizine and steroids in the ED with resolution of her dizziness as long as she does not move -Continue meclizine 25 mg p.o. Q8 HR as needed -CT head showed no acute intracranial process and CTA head and neck was noncontributory outside of a submental hyperdense lesion which was unchanged from 11/07/2023 -Neurology consulted -Fall precautions -Continue cardiac monitoring Chronic Conditions: #Hyperlipidemia: -Continue medications #Hypertension: -Continue medications #Diabetes mellitus: -Hold home medications -Sliding scale -Accu-Cheks #CAD -Continue home medication -Cardiac monitoring F: P.o. E: None N: Consistent carbohydrate diet DVT ppx: Lovenox 40 SQ daily GI ppx: Protonix 40 mg p.o. daily CODE STATUS: Full code Dispo: Pending clinical course Mamie Gutierrez MD PGY-1 FM Dictation was produced using [employer] dictation software. please excuse any grammatical, word or spelling errors. Past Medical History Past Medical History: Coronary Artery Disease (CAD), Diabetes Mellitus, Hyperlipidemia, Hypertension, Sleep Apnea/CPAP/BIPAP Additional Past Medical History / Comment(s): heart murmur History of Any Multi-Drug Resistant Organisms: None Reported Past Surgical History: Appendectomy, Bariatric Surgery, Breast Surgery, Cholecystectomy, Heart Catheterization With Stent, Hysterectomy, Orthopedic Surgery Additional Past Surgical History / Comment(s): maximino-en-y bariatric surgery. benign excisional breast biopsies Past Anesthesia/Blood Transfusion Reactions: No Reported Reaction Past Psychological History: No Psychological Hx Reported Smoking Status: Never smoker Past Alcohol Use History: None Reported Past Drug Use History: None Reported - Past Family History Mother Family Medical History: No Reported History Medications and Allergies Home Medications Medication Instructions Recorded Confirmed Type Aspirin [Adult Low Dose Aspirin EC] 81 mg PO DAILY 10/06/19 02/03/24 History Cyanocobalamin [Vitamin B-12] 500 mcg PO DAILY 10/06/19 02/03/24 History Ergocalciferol [Vitamin D2 1,250 mcg PO FR 10/06/19 02/03/24 History (DRISDOL)] Gabapentin [Neurontin] 400 mg PO TID 10/06/19 02/03/24 History Lansoprazole [Prevacid] 30 mg PO DAILY 10/06/19 02/03/24 History Metoprolol Tartrate [Lopressor] 25 mg PO BID 10/06/19 02/03/24 History metFORMIN HCL [Glucophage] 500 mg PO BID 10/06/19 02/03/24 History Atorvastatin [Lipitor] 80 mg PO HS #90 tab 10/09/19 02/03/24 Rx Nitroglycerin Sl Tabs [Nitrostat] 0.4 mg SUBLINGUAL Q5M PRN #25 tab 10/09/19 02/03/24 Rx Ezetimibe [Zetia] 10 mg PO DAILY 04/12/20 02/03/24 History Isosorbide Mononitrate [Isosorbide 30 mg PO DAILY 09/20/22 02/03/24 History Mononitrate ER] traMADol HCL 100 mg PO DAILY 09/20/22 02/03/24 History Alendronate Sodium 70 mg PO FR 05/30/23 02/03/24 History Clopidogrel [Plavix] 75 mg PO DAILY #90 tab 06/04/23 02/03/24 Rx Acetaminophen [Tylenol Arthritis] 650 mg PO BID 11/07/23 02/03/24 History Brimonidine Tartrate/Timolol 1 drop LEFT EYE BID 11/07/23 02/03/24 History [Brimonidine-Timolol 0.2%-0.5%] Triamcinolone 0.1% Cream [Kenalog 1 applic TOPICAL BID PRN 11/07/23 02/03/24 History 0.1% Cream] traMADol HCL 100 mg PO HS PRN 11/07/23 02/03/24 History Calcium 600mg-Vitamin D3(Unknown 1 tab PO BID 02/03/24 02/03/24 History Dose) Melatonin 6 mg PO HS PRN 02/03/24 02/03/24 History Multivitamins, Thera [Multivitamin 1 tab PO BID 02/03/24 02/03/24 History (formulary)] Sennosides [Senokot] 17.2 mg PO BID PRN 02/03/24 02/03/24 History allopurinoL 100 mg PO DAILY 02/03/24 02/03/24 History Allergies Allergy/AdvReac Type Severity Reaction Status Date / Time No Known Allergies Allergy Verified 02/03/24 20:12 Physical Exam Vitals: Vital Signs Temp Pulse Resp BP Pulse Ox 02/03/24 18:52 98.5 F 70 16 156/88 98 02/03/24 17:10 66 17 148/86 98 02/03/24 15:22 97.6 F 67 17 160/81 95 02/03/24 14:01 97.5 F L 68 18 172/96 98 02/03/24 12:53 97.4 F L 70 18 160/79 95 Intake and Output 02/03/24 02/03/24 02/03/24 06:59 14:59 22:59 Other: Weight 104.326 kg Results CBC & Chem 7: 02/03/24 13:47 02/03/24 17:30 Labs: Abnormal Lab Results - Last 24 Hours (Table) 02/03/24 02/03/24 02/03/24 Range/Units 13:47 16:23 17:30 RBC 3.72 L (3.80-5.40) m/uL Chloride 111 H (98-107) mmol/L Glucose 106 H (74-99) mg/dL Urine Appearance Cloudy H (Clear) Amorphous Sediment Rare H (None) /hpf Urine Bacteria Occasional H (None) /hpf
[2024-02-04] MEDS ORDERED: DEXTROSE 50% SYRINGE 50 ML IVP PRN ×2 (01:19)
[2024-02-04 05:29] LABS: Glucose,Whole Blood 192 mg/dL (70-110)
[2024-02-04] MEDS: INSULIN ASPART (NovoLOG) 100 UNIT/ML VIAL SQ SCH (05:50)
[2024-02-04] MEDS: allopurinoL 100 MG TAB PO SCH (09:03)
[2024-02-04] MEDS: ISOSORBIDE MONONITRATE ER 30 MG TAB.ER.24H PO SCH (09:03)
[2024-02-04] MEDS: CYANOCOBALAMIN 500 MCG TAB PO SCH (09:03)
[2024-02-04] MEDS: EZETIMIBE 10 MG TAB PO SCH (09:03)
[2024-02-04] MEDS: PANTOPRAZOLE 40 MG TABLET PO SCH (09:03)
[2024-02-04] MEDS: ASPIRIN 81 MG PO SCH (09:03)
[2024-02-04 09:04] LABS: Basophils # (A) 0.01 X 10*3/uL (0.00-0.10); Basophils % (A) 0.2 %; Eosinophils # (A) 0 X 10*3/uL (0.04-0.35); Eosinophils % (A) 0 %; HCT 37.3 % (37.2-46.3); HGB 11.6 g/dL (12.0-15.0); Lymphocytes # (A) 0.86 X 10*3/uL (0.90-5.00); Lymphocytes % (A) 19.8 %; MCH 30.5 pg (27.0-32.0); MCHC 31.1 g/dL (32.0-37.0); MCV 98.2 FL (80.0-97.0); Mean Platelet Volume 10.2 FL (9.5-12.2); Monocytes # (A) 0.05 X 10*3/uL (0.20-1.00); Monocytes % (A) 1.1 %; NRBC Per 100 WBC 0 X 10*3/uL (0.00-0.01); Neutrophils # (A) 3.41 X 10*3/uL (1.80-7.70); Neutrophils % (A) 78.4 %; Platelet Count 265 X 10*3/uL (140-440); WBC 4.35 X 10*3/uL (4.50-10.00)
[2024-02-04] MEDS: ENOXAPARIN 40 MG/0.4 ML SYRINGE SQ SCH (09:05)
[2024-02-04] MEDS: CLOPIDOGREL 75 MG TAB PO SCH (09:05)
[2024-02-04] MEDS: MECLIZINE 12.5 MG TAB PO PRN (09:05)
[2024-02-04] MEDS: traMADol 50 MG TAB PO SCH (09:11)
[2024-02-04 09:24] LABS: BUN/Creat Ratio 15.78 Ratio (12.00-20.00); Blood Urea Nitrogen 14.2 mg/dL (9.0-27.0); Calcium 8.9 mg/dL (8.7-10.3); Carbon Dioxide 23.2 mmol/L (21.6-31.8); Chloride 107 mmol/L (96-109); Glucose 199 mg/dL (70-110); Potassium 5.3 mmol/L (3.5-5.5); Sodium 141 mmol/L (135-145)
[2024-02-04 12:00] LABS: Glucose,Whole Blood 229 mg/dL (70-110)
--- NOTE | 2024-02-04 14:05 | P.PN ---
Subjective Progress Note Date: 02/04/24 Hospital Course: 68-year-old female with PMH of CAD, diabetes mellitus, hyperlipidemia, and hyp ertension presents with complaints of dizziness. Labs: WBC 5, RBC 3.72, hemoglobin 11.4, MCV 98.3, sodium 140, calcium 5.1, chloride 111, glucose 106, lactate 1.9, and troponin 0.017. Imaging: - EKG done in the ER showed heart rate of 62 bpm, sinus rhythm with first-degree AV block, and QTc 438. - ER CT Head: No acute intracranial process - ER CTA head and neck: No evidence of dissection of the cervical internal carotid arteries or vertebral arteries, no evidence of significant stenosis at the carotid bifurcations, no evidence of intracranial high-grade stenosis or intracranial aneurysm, and submental hyperdense lesion unchanged from 11/07/2023. Patient admitted for persistent vertigo. Neurology also consulted. Subjective: Patient seen and examined at bedside. No acute events overnight. Continues to have vertigo mostly with changing in position of her head. Pertinent positives and negatives as discussed above, a complete review of systems was performed and all other systems are negative. Vitals Signs Reviewed. General: Nontoxic, no distress, appears at stated age Derm: Warm, dry Head: Atraumatic, normocephalic, symmetric Eyes: EOMI, no lid lag, anicteric sclera Mouth: No lip lesion, mucus membranes moist Cardiovascular: S1S2 reg, no murmur Lungs: CTA bilateral, no rhonchi, no rales, no accessory muscle use Abdominal: Soft, nontender to palpation, no guarding, no appreciable organomegaly Ext: No gross muscle atrophy, no edema, no contractures Neuro: CN II-XI grossly intact, no focal neuro deficits, horizontal nystagmus Psych: Alert, oriented, appropriate affect Data Reviewed Today: Pertinent Labs: WBC 4.35, hemoglobin 11.6, creatinine 0.9, blood sugars range between 1 92-2 29 Imaging: No new imaging Assessment and Plan: Active: Persistent vertigo -Likely BPPV -Continue meclizine 25 p.o. every 8 hours as needed -Imaging has all been negative so far -Pending neurology evaluation -Possible discharge later today Type 2 diabetes -Sliding scale insulin, monitor for hypoglycemia -Holding home antidiabetic medications Chronic: Dyslipidemia Hypertension GERD Gout CAD DVT ppx: Lovenox Code status: Full code Anticipated discharge place: Home Anticipated discharge time: Today or tomorrow Objective - Vital Signs Vital signs: Vital Signs Temp 97 F L 02/04/24 07:00 Pulse 81 02/04/24 07:00 Resp 16 02/04/24 08:00 BP 152/78 02/04/24 07:00 Pulse Ox 97 02/04/24 07:00 FiO2 Intake & Output 02/03/24 02/04/24 02/04/24 18:59 06:59 18:59 Intake Total 118 Output Total 600 Balance -600 118 Weight 104.326 kg 104.326 kg Intake: Oral 118 Output: Urine 600 Other: Voiding Method External Catheter Bedside Commode # Voids 0 1 - Labs CBC & Chem 7: 02/04/24 05:09 02/04/24 05:09 Labs: Abnormal Lab Results - Last 24 Hours (Table) 02/03/24 02/03/24 02/03/24 Range/Units 13:47 16:23 17:30 WBC (4.50-10.00) X 10*3/uL RBC 3.72 L (3.80-5.40) m/uL Hgb (12.0-15.0) g/dL MCV (80.0-97.0) FL MCHC (32.0-37.0) g/dL Lymphocytes # (0.90-5.00) X 10*3/uL Monocytes # (0.20-1.00) X 10*3/uL Eosinophils # (0.04-0.35) X 10*3/uL Chloride 111 H (98-107) mmol/L Glucose 106 H (74-99) mg/dL POC Glucose (mg/dL) (70-110) mg/dL Urine Appearance Cloudy H (Clear) Amorphous Sediment Rare H (None) /hpf Urine Bacteria Occasional H (None) /hpf 02/04/24 02/04/24 02/04/24 Range/Units 05:09 05:09 05:28 WBC 4.35 L (4.50-10.00) X 10*3/uL RBC 3.80 L (3.80-5.40) m/uL Hgb 11.6 L (12.0-15.0) g/dL MCV 98.2 H (80.0-97.0) FL MCHC 31.1 L (32.0-37.0) g/dL Lymphocytes # 0.86 L (0.90-5.00) X 10*3/uL Monocytes # 0.05 L (0.20-1.00) X 10*3/uL Eosinophils # 0 L (0.04-0.35) X 10*3/uL Chloride (98-107) mmol/L Glucose 199 H (74-99) mg/dL POC Glucose (mg/dL) 192 H (70-110) mg/dL Urine Appearance (Clear) Amorphous Sediment (None) /hpf Urine Bacteria (None) /hpf 02/04/24 Range/Units 11:59 WBC (4.50-10.00) X 10*3/uL RBC (3.80-5.40) m/uL Hgb (12.0-15.0) g/dL MCV (80.0-97.0) FL MCHC (32.0-37.0) g/dL Lymphocytes # (0.90-5.00) X 10*3/uL Monocytes # (0.20-1.00) X 10*3/uL Eosinophils # (0.04-0.35) X 10*3/uL Chloride (98-107) mmol/L Glucose (74-99) mg/dL POC Glucose (mg/dL) 229 H (70-110) mg/dL Urine Appearance (Clear) Amorphous Sediment (None) /hpf Urine Bacteria (None) /hpf
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
[2024-02-04 17:15] LABS: Glucose,Whole Blood 120 mg/dL (70-110)
[2024-02-04 19:47] LABS: Glucose,Whole Blood 205 mg/dL (70-110)
[2024-02-04] MEDS: traMADol 50 MG TAB PO PRN (21:49)
[2024-02-05 01:47] VITALS: PULSE 71
[2024-02-05 05:24] LABS: Glucose,Whole Blood 113 mg/dL (70-110)
[2024-02-05 07:23] VITALS: BP 148/88; RESP 20; TEMP 97.4
--- NOTE | 2024-02-05 11:56 | P.DS ---
Providers Date of admission: 02/03/24 20:45 Expected date of discharge: 02/05/24 Attending physician: Da Garner MD Consults: 02/03/24 20:34 Consult Physician Urgent Consulting Provider: Jorge L Harden Consult Reason/Comments: intractable vertigo Do you want consulting provider notified?: Yes Primary care physician: Pancho Melara Hospital Course: Discharge Diagnosis: Persistent peripheral vertigo Type 2 diabetes Dyslipidemia Hypertension GERD Gout CAD Hospital Course: 68-year-old female with PMH of CAD, diabetes mellitus, hyperlipidemia, and hypertension presents with complaints of dizziness. Labs: WBC 5, RBC 3.72, hemoglobin 11.4, MCV 98.3, sodium 140, calcium 5.1, chloride 111, glucose 106, lactate 1.9, and troponin 0.017. Imaging: - EKG done in the ER showed heart rate of 62 bpm, sinus rhythm with first-degree AV block, and QTc 438. - ER CT Head: No acute intracranial process - ER CTA head and neck: No evidence of dissection of the cervical internal ca rotid arteries or vertebral arteries, no evidence of significant stenosis at the carotid bifurcations, no evidence of intracranial high-grade stenosis or intracranial aneurysm, and submental hyperdense lesion unchanged from 11/07/2023. Patient admitted for persistent vertigo. Neurology also consulted. Symptoms improved. Patient being discharged home with as needed meclizine. Patient seen and examined at bedside. Vital signs reviewed and stable. General: Nontoxic, no distress, appears at stated age Derm: Warm, dry Head: Atraumatic, normocephalic, symmetric Eyes: EOMI, no lid lag, anicteric sclera Mouth: No lip lesion, mucus membranes moist Cardiovascular: S1S2 reg, no murmur Lungs: CTA bilateral, no rhonchi, no rales, no accessory muscle use Abdominal: Soft, nontender to palpation, no guarding, no appreciable organomegaly Ext: No gross muscle atrophy, no edema, no contractures Neuro: CN II-XI grossly intact, no focal neuro deficits Psych: Alert, oriented, appropriate affect A total of 36 minutes of time were spent preparing this complex discharge summary. Patient was discharged on 02/05/2024 at 1139. Patient Condition at Discharge: Stable Plan - Discharge Summary Discharge Rx Participant: No New Discharge Prescriptions: New Meclizine [Antivert] 25 mg PO Q8HR PRN #30 tab PRN Reason: Vertigo Continue Cyanocobalamin [Vitamin B-12] 500 mcg PO DAILY Lansoprazole [Prevacid] 30 mg PO DAILY Gabapentin [Neurontin] 400 mg PO TID Metoprolol Tartrate [Lopressor] 25 mg PO BID Ergocalciferol [Vitamin D2 (DRISDOL)] 1,250 mcg PO FR metFORMIN HCL [Glucophage] 500 mg PO BID Aspirin [Adult Low Dose Aspirin EC] 81 mg PO DAILY Atorvastatin [Lipitor] 80 mg PO HS #90 tab Nitroglycerin Sl Tabs [Nitrostat] 0.4 mg SUBLINGUAL Q5M PRN #25 tab PRN Reason: Chest Pain Ezetimibe [Zetia] 10 mg PO DAILY Clopidogrel [Plavix] 75 mg PO DAILY #90 tab Triamcinolone 0.1% Cream [Kenalog 0.1% Cream] 1 applic TOPICAL BID PRN PRN Reason: Itching Brimonidine Tartrate/Timolol [Brimonidine-Timolol 0.2%-0.5%] 1 drop LEFT EYE BID traMADol HCL 100 mg PO HS PRN PRN Reason: Pain Acetaminophen [Tylenol Arthritis] 650 mg PO BID Sennosides [Senokot] 17.2 mg PO BID PRN PRN Reason: Constipation Melatonin 6 mg PO HS PRN PRN Reason: Insomnia Calcium 600mg-Vitamin D3(Unknown Dose) 1 tab PO BID Isosorbide Mononitrate [Isosorbide Mononitrate ER] 30 mg PO DAILY traMADol HCL 100 mg PO DAILY Alendronate Sodium 70 mg PO FR Multivitamins, Thera [Multivitamin (formulary)] 1 tab PO BID allopurinoL 100 mg PO DAILY Discharge Medication List Aspirin [Adult Low Dose Aspirin EC] 81 mg PO DAILY 10/06/19 [History] Cyanocobalamin [Vitamin B-12] 500 mcg PO DAILY 10/06/19 [History] Ergocalciferol [Vitamin D2 (DRISDOL)] 1,250 mcg PO FR 10/06/19 [History] Gabapentin [Neurontin] 400 mg PO TID 10/06/19 [History] Lansoprazole [Prevacid] 30 mg PO DAILY 10/06/19 [History] Metoprolol Tartrate [Lopressor] 25 mg PO BID 10/06/19 [History] metFORMIN HCL [Glucophage] 500 mg PO BID 10/06/19 [History] Atorvastatin [Lipitor] 80 mg PO HS #90 tab 10/09/19 [Rx] Nitroglycerin Sl Tabs [Nitrostat] 0.4 mg SUBLINGUAL Q5M PRN #25 tab 10/09/19 [Rx] Ezetimibe [Zetia] 10 mg PO DAILY 04/12/20 [History] Isosorbide Mononitrate [Isosorbide Mononitrate ER] 30 mg PO DAILY 09/20/22 [History] traMADol HCL 100 mg PO DAILY 09/20/22 [History] Alendronate Sodium 70 mg PO FR 05/30/23 [History] Clopidogrel [Plavix] 75 mg PO DAILY #90 tab 06/04/23 [Rx] Acetaminophen [Tylenol Arthritis] 650 mg PO BID 11/07/23 [History] Brimonidine Tartrate/Timolol [Brimonidine-Timolol 0.2%-0.5%] 1 drop LEFT EYE BID 11/07/23 [History] Triamcinolone 0.1% Cream [Kenalog 0.1% Cream] 1 applic TOPICAL BID PRN 11/07/23 [History] traMADol HCL 100 mg PO HS PRN 11/07/23 [History] Calcium 600mg-Vitamin D3(Unknown Dose) 1 tab PO BID 02/03/24 [History] Melatonin 6 mg PO HS PRN 02/03/24 [History] Multivitamins, Thera [Multivitamin (formulary)] 1 tab PO BID 02/03/24 [History] Sennosides [Senokot] 17.2 mg PO BID PRN 02/03/24 [History] allopurinoL 100 mg PO DAILY 02/03/24 [History] Meclizine [Antivert] 25 mg PO Q8HR PRN #30 tab 02/05/24 [Rx] Follow up Appointment(s)/Referral(s): Pancho Melara MD [Primary Care Provider] - 1-[address] [facility], [NON-STAFF] - As Needed Patient Instructions/Handouts: Vertigo (DC), Benign Paroxysmal Positional Vertigo (DC) Activity/Diet/Wound Care/Special Instructions: Please see PCP. Discharge Disposition: HOME WITH HOME HEALTH SERVICES
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
[2024-02-05 12:23] LABS: Glucose,Whole Blood 150 mg/dL (70-110)
== END 2024-02-05 13:58 | disposition home health service (06) ==
LOC: EC 12:41 → 6NMEDSUR 20:45
PROVIDERS: ADMIT Internal Medicine; ATTEND Internal Medicine
DX: H81.399 Other peripheral vertigo, unspecified ear (principal); E11.9 Type 2 diabetes mellitus without complications; E78.00 Pure hypercholesterolemia, unspecified; I10 Essential (primary) hypertension; K21.9 Gastro-esophageal reflux disease without esophagitis; M10.9 Gout, unspecified; I25.10 Atherosclerotic heart disease of native coronary artery without angina pectoris; H55.00 Unspecified nystagmus; H81.10 Benign paroxysmal vertigo, unspecified ear; I44.0 Atrioventricular block, first degree; Z79.02 Long term (current) use of antithrombotics/antiplatelets; Z79.82 Long term (current) use of aspirin; Z79.84 Long term (current) use of oral hypoglycemic drugs; Z79.899 Other long term (current) drug therapy; Z90.710 Acquired absence of both cervix and uterus; R11.2 Nausea with vomiting, unspecified
CPT/HCPCS: 96372 ×2; 96375; 96361; 96374; 99285; 36415; 93005; 97162; 97167; 80053; 80048; 83605; 84484; 85025 ×2; 81001; 70496; 70450; 70498; G0378 ×3; J1100; J3360; J1650 ×2; Q9967

== ENCOUNTER → 2024-07-16 | Outpatient (CLI) | payer MEDICARE ==
[2024-07-16 14:49] VITALS: BP 144/81; PULSE 78; RESP 16; TEMP 98.2
--- NOTE | 2024-07-16 15:24 | P.SLEEP ---
History of Present Illness DATE: 07/16/2024 CONSULTATION/NEW PATIENT EVALUATION HISTORY OF PRESENT ILLNESS/SLEEP-WAKE EVALUATION: 68-year-old lady had been ev aluated in the sleep center for obstructive sleep apnea hypopnea syndrome. Patient has history of obstructive sleep apnea, last time I saw patient in December 2020. Patient stopped using CPAP equipment more than 2 years ago. SLEEP SCHEDULE: Usually sleep schedule 8 PM to 56 AM. FALLING ASLEEP: Sometimes patient has difficulties to fall asleep, has TV set in bedroom. DURING SLEEP: Patient snores and wakes up from sleep up to 5 times. Positive history of nocturia. No history of hypnogogical hallucinations, sleep paralysis, or cataplexy. DURING THE DAY/WAKE STATE: In the morning patient wake up tired, falling asleep during the day. Oark sleepiness scale is increased to 11. PAST MEDICAL HISTORY: Hypertension, diabetes mellitus, gout, hyperlipidemia. PAST SURGICAL HISTORY: Bariatric surgery. MEDICATIONS: Please see below. SOCIAL HISTORY: Please see below. FAMILY HISTORY: Please see below. REVIEW OF SYSTEMS: Snoring, multiple awakenings from sleep, sleepiness during t day. No fevers. No double vision. No recent chest pain. No shortness of breath. No abdominal pain. No bleeding episodes. No blood in urine. No seizure episodes. PHYSICAL EXAMINATION: GENERAL: A pleasant patient without any distress. VITAL SIGNS: Please see below, weight 247 pounds, BMI 46.6. HEENT: PERRLA, EOMI. Evaluation of oropharynx showed tongue protrudes midline, low position of soft palate Mallampati 4. NECK: Supple. No JVD. Thyroid is not palpable. 16.5 inches in circumference. LUNGS: Clear to percussion and to auscultation. Good air exchange. No wheezing or rhonchi. HEART: S1, S2 regular. No murmurs, gallops or rubs. ABDOMEN: Soft and nontender. Bowel sounds are present. No organomegaly appreciated. EXTREMITIES: No clubbing or cyanosis. BRANCH MECHANIC: Awake, alert, and oriented x3. Cranial nerves 2 to 7 intact. There is no fasciculation or atrophy noted. No focal deficits observed. ASSESSMENT: 1. Snoring, multiple awakenings from sleep, extremely low position of soft pa late Mallampati 4, wide neck 16.5 inches in circumference, sleepiness with Oark Sleepiness Scale increased to 11, history of obstructive sleep apnea. Obstructive sleep apnea hypopnea syndrome. 2. Obesity, BMI 46.6. 3. Hypertension. 4. Diabetes mellitus. 5 gout. 6 . Hyperlipidemia. 7. Status post bariatric surgery. PLAN: 1. Polysomnography for evaluation of patient's breathing during sleep. 2. Following plan after reading sleep study. 3. Preferable position during sleep on the side. 4. No driving if patient feels any sleepiness. Patient is aware of civil and criminal liability for unsafe driving. 5. Sleep hygiene with regular sleep time for at least 7.5-8 hours. 6. Watching and losing weight. Thank you very much for referring this patient for consultation. Sincerely, Niranjan Denise MD, PhD, FAASM. Diplomat of [place] [employer], Sleep Medicine Board by [place] [employer] [employer] [facility] [place] cc: Ralf Ortega PA-C Past Medical History Past Medical History: Coronary Artery Disease (CAD), Diabetes Mellitus, Hyperlipidemia, Hypertension, Rheumatoid Arthritis (RA), Sleep Apnea/CPAP/BIPAP Additional Past Medical History / Comment(s): heart murmur, insomnia History of Any Multi-Drug Resistant Organisms: None Reported Past Surgical History: Appendectomy, Bariatric Surgery, Breast Surgery, Cholecystectomy, Heart Catheterization With Stent, Hysterectomy, Orthopedic Surgery Additional Past Surgical History / Comment(s): maximino-en-y bariatric surgery. benign excisional breast biopsies Past Anesthesia/Blood Transfusion Reactions: No Reported Reaction Date of Last Stent Placement:: 05/2023 Past Psychological History: No Psychological Hx Reported Additional Psychological History / Comment(s): claustraphobic Smoking Status: Never smoker Past Alcohol Use History: None Reported Past Drug Use History: None Reported - Past Family History Mother Family Medical History: Diabetes Mellitus, Hypertension, Rheumatoid Arthritis (RA) Father Family Medical History: Hypertension, Rheumatoid Arthritis (RA) Medications and Allergies Home Medications Medication Instructions Recorded Confirmed Type Aspirin [Adult Low Dose Aspirin EC] 81 mg PO DAILY 10/06/19 02/03/24 History Cyanocobalamin [Vitamin B-12] 500 mcg PO DAILY 10/06/19 07/16/24 History Ergocalciferol [Vitamin D2 1,250 mcg PO FR 10/06/19 07/16/24 History (DRISDOL)] Gabapentin [Neurontin] 400 mg PO TID 10/06/19 07/16/24 History Lansoprazole [Prevacid] 30 mg PO DAILY 10/06/19 07/16/24 History Metoprolol Tartrate [Lopressor] 25 mg PO BID 10/06/19 07/16/24 History metFORMIN HCL [Glucophage] 500 mg PO BID 10/06/19 07/16/24 History Atorvastatin [Lipitor] 80 mg PO HS #90 tab 10/09/19 07/16/24 Rx Nitroglycerin Sl Tabs [Nitrostat] 0.4 mg SUBLINGUAL Q5M PRN #25 tab 10/09/19 02/03/24 Rx Ezetimibe [Zetia] 10 mg PO DAILY 04/12/20 07/16/24 History Isosorbide Mononitrate [Isosorbide 30 mg PO DAILY 09/20/22 02/03/24 History Mononitrate ER] traMADol HCL 100 mg PO DAILY 09/20/22 07/16/24 History Alendronate Sodium 70 mg PO FR 05/30/23 02/03/24 History Clopidogrel [Plavix] 75 mg PO DAILY #90 tab 06/04/23 02/03/24 Rx Acetaminophen [Tylenol Arthritis] 650 mg PO BID 11/07/23 02/03/24 History Brimonidine Tartrate/Timolol 1 drop LEFT EYE BID 11/07/23 07/16/24 History [Brimonidine-Timolol 0.2%-0.5%] Triamcinolone 0.1% Cream [Kenalog 1 applic TOPICAL BID PRN 11/07/23 02/03/24 History 0.1% Cream] traMADol HCL 100 mg PO HS PRN 11/07/23 02/03/24 History Calcium 600mg-Vitamin D3(Unknown 1 tab PO BID 02/03/24 07/16/24 History Dose) Melatonin 6 mg PO HS PRN 02/03/24 02/03/24 History Multivitamins, Thera [Multivitamin 1 tab PO BID 02/03/24 07/16/24 History (formulary)] Sennosides [Senokot] 17.2 mg PO BID PRN 02/03/24 02/03/24 History allopurinoL 100 mg PO DAILY 02/03/24 07/16/24 History Meclizine [Antivert] 25 mg PO Q8HR PRN #30 tab 02/05/24 07/16/24 Rx Allergies Allergy/AdvReac Type Severity Reaction Status Date / Time No Known Allergies Allergy Verified 02/03/24 20:12 Physical Exam Vitals: Vital Signs Temp Pulse Resp BP Pulse Ox 07/16/24 14:47 98.2 F 78 16 144/81 97 Intake and Output 07/16/24 07/16/24 07/16/24 06:59 14:59 22:59 Other: Weight 112.037 kg Sleep Note - Sleep Data ESS Total: 11 - Sleep Note Sleep Note: Temperature: 98.2 F Pulse Rate: 78 Respiratory Rate: 16 Blood Pressure: 144/81 SpO2: 97 Height: 5 ft 1 in Weight: 112.037 kg BMI: Neck Circumference: 16.5
== END ==
LOC: 3 N SLEEP 14:31
PROVIDERS: ATTEND Internal Medicine
DX: G47.33 Obstructive sleep apnea (adult) (pediatric) (principal); I10 Essential (primary) hypertension; E11.9 Type 2 diabetes mellitus without complications; M10.9 Gout, unspecified; E78.5 Hyperlipidemia, unspecified; E66.9 Obesity, unspecified; Z68.42 Body mass index [BMI] 45.0-49.9, adult; Z98.84 Bariatric surgery status
CPT/HCPCS: 99211

== ENCOUNTER 2024-09-03 19:44 | Outpatient (CLI) | payer MEDICARE ==
--- NOTE | 2024-09-10 16:17 | P.PCN ---
Description of Procedure: POLYSOMNOGRAPHY REPORT PROCEDURE(S)/DATE(S): Polysomnography 09/03/2024 CLINICAL: Patient has been seen in the sleep center for evaluation of obstructive sleep apnea-hypopnea syndrome. Please see my consultation. Sleep study has been done for evaluation of patient breathing during the sleep. PROCEDURE: The standard montage for clinical polysomnography included the electroencephalogram, the electrooculogram, the mentalis surface electromyography and Lead II cardiography. The respiratory battery consisted of measurements of nasal/buccal air flow, pressure transducer measurements from nose, thoracic and/or abdominal effort and intercostal surface electromyography. Video monitoring has been done to check for any parasomnia events. Nocturnal oxyhemoglobin saturations were obtained by finger oximetry. Step-pitts titration with positive airway pressure was utilized to control the respiratory events, if necessary. RESULTS: During the diagnostic sleep study sleep efficiency was decreased to 78.9%. Latency to sleep onset was in normal range 22.0 min. Sleep architecture showed stage NI was short 1.9%, Delta sleep was absent 0%, REM sleep was in the very high range 41.6%. Respiratory channel showed 0 obstructive apneas, 2 mixed apneas, 0 central apneas, 101 hypopneas with lowest oxygen level 65%. Total apnea hypopnea index was 19.4. Heart rate was in the range between 64 and 71, average 66. EMG showed 5.7 periodic limb movements per hour with 0.4 micro-arousals per hour. IMPRESSIONS: 1. Moderate obstructive sleep apnea hypopnea syndrome. 2. No significant periodic limb movements have been documented. Please see other impressions from consultation PLAN: 1. The patient will have PAP titration for correction of respiratory abnormalities during the sleep. 2. Losing weight program. 3. Sleep hygiene with regular time in bed for at least 7-1/2 hours. 4. No driving if feeling sleepiness. Thank you very much for allowing me to participate in the management of your patient. Sincerely, Niranjan Denise MD, PhD, FAASM. Diplomat of [place] [employer], Sleep Medicine Board by [place] [employer] [facility] [place] cc: Clayton Lemos MD, Ralf Saldana PA-C
== END 2024-09-04 06:15 | disposition home or self-care (01) ==
LOC: 3 N SLEEP 19:44
PROVIDERS: ATTEND Internal Medicine
DX: G47.33 Obstructive sleep apnea (adult) (pediatric) (principal)
CPT/HCPCS: 95810